=== PATIENT | male | born 1945 | race Two or more races ===

== ENCOUNTER 2023-01-01 08:37 | Inpatient (IN) | payer OTHER, MEDICAID ==
[~2023-01-01] VITALS: Ht 177.8 cm; Wt 92.3 kg
[~2023-01-01 08:37] MED LIST: ASPI325T4 PO; CLON-853 PO; LISI20TA28 PO; LORA0.5T19 PO; NIFE90TA49 PO; POTA10TA51 PO; ZOLP10TA PO
[2023-01-01 09:42] LABS: Basophils # (auto) 0 10 ^3/uL (0-0.2); Basophils % (auto) 0.3 % (0.0-2.0); Eosinophils # (auto) 0.2 10 ^3/uL (0-0.8); Eosinophils % (auto) 2.4 % (0.0-7.0); Hematocrit 43.5 % (41.0-53.0); Hemoglobin 14.7 g/dL (13.5-17.5); Lymphocytes # (auto) 1.3 10 ^3/uL (0.4-5.4); Lymphocytes % (auto) 17.3 % (10.0-50.0); Mean Corpuscular Hemoglobin 31.1 pg (28.0-32.0); Mean Corpuscular Hgb Conc. 33.8 g/dL (32.0-36.0); Mean Corpuscular Volume 92.2 fL (80.0-100.0); Monocytes # (auto) 0.7 10 ^3/uL (0-1.3); Monocytes % (auto) 9.8 % (0.0-12.0); Neutrophils # (auto) 5.3 10 ^3/uL (1.6-8.6); Neutrophils % (auto) 70.2 % (37.0-80.0); Nucleated Red Blood Cells % 0.1 %; Red Blood Cells 4.72 10^6/uL (4.5-5.90); White Blood Cell 7.5 10^3/uL (4.4-10.8)
[2023-01-01 10:15] LABS: Albumin 3.2 g/dL (3.4-5.0); Potassium 4.1 mmol/L (3.5-5.1)
[2023-01-01 10:18] LABS: Urine Bacteria NONE SEEN /hpf (None Seen); Urine Blood Negative /uL (Negative); Urine Mucus FEW (None Seen); Urine Specific Gravity 1.025 (1.001-1.035); Urine WBC 5 /hpf (0 - 3)
[2023-01-01 10:20] LABS: BUN/Creatinine Ratio 19.6 (10.0-20.0); Bilirubin, Total 0.6 mg/dL (0.2-1.0); Total Protein 6.6 g/dL (6.4-8.2)
[2023-01-01 12:02] LABS: INR 1.05 (0.9-1.15); Partial Thromboplastin Time 33.4 sec (24.6-33.4)
[2023-01-01] MEDS ORDERED: MORPHINE SULFATE INJ 2 MG/ml SYRG IV PRN (14:45)
[2023-01-01] MEDS ORDERED: ONDANSETRON HCL 4 MG/2 ML VIAL IV PRN (14:45)
[2023-01-01] MEDS: PANTOPRAZOLE 40 MG/10 ML VIAL INJ IV SCH ×2 (16:27→22:34)
[2023-01-01] MEDS: SODIUM CHLORIDE 0.9% 1,000 ML IV SCH ×2 (17:38→23:05)
[2023-01-01 18:08] LABS: Hematocrit 38.8 % (41.0-53.0); Hemoglobin 13.2 g/dL (13.5-17.5)
[2023-01-01] MEDS ORDERED: clonazePAM 0.5 MG TAB PO SCH (22:00)
[2023-01-01] MEDS: LISINOPRIL 20 MG TAB PO SCH (22:34)
[2023-01-01 23:30] VITALS: BP 148/73
[2023-01-01 23:55] VITALS: BP 148/73
[2023-01-02 00:45] LABS: Hematocrit 38.7 % (41.0-53.0); Hemoglobin 13.1 g/dL (13.5-17.5)
[2023-01-02] MEDS ORDERED: DOXE10CA PO (01:41)
[2023-01-02] MEDS ORDERED: BUDE1AER4 INH (01:41)
[2023-01-02] MEDS ORDERED: LOSA-69 PO (01:41)
[2023-01-02] MEDS ORDERED: VORT1TAB3 PO (01:41)
[2023-01-02] MEDS ORDERED: GABA300C10 PO (01:41)
[2023-01-02] MEDS ORDERED: DOXA4TAB6 PO (01:41)
[2023-01-02 05:00] VITALS: BP 122/53
[2023-01-02 06:25] LABS: Basophils # (auto) 0 10 ^3/uL (0-0.2); Basophils % (auto) 0.4 % (0.0-2.0); Eosinophils # (auto) 0.2 10 ^3/uL (0-0.8); Eosinophils % (auto) 3.5 % (0.0-7.0); Hematocrit 38.4 % (41.0-53.0); Hemoglobin 13.3 g/dL (13.5-17.5); Lymphocytes # (auto) 1.2 10 ^3/uL (0.4-5.4); Lymphocytes % (auto) 17.8 % (10.0-50.0); Mean Corpuscular Hemoglobin 31.6 pg (28.0-32.0); Mean Corpuscular Hgb Conc. 34.5 g/dL (32.0-36.0); Mean Corpuscular Volume 91.5 fL (80.0-100.0); Monocytes # (auto) 0.7 10 ^3/uL (0-1.3); Neutrophils # (auto) 4.8 10 ^3/uL (1.6-8.6); Neutrophils % (auto) 68.3 % (37.0-80.0)
[2023-01-02 06:52] LABS: Albumin 2.9 g/dL (3.4-5.0); Calcium 8.4 mg/dL (8.5-10.1); Potassium 4.1 mmol/L (3.5-5.1)
[2023-01-02 06:57] LABS: Bilirubin, Total 0.7 mg/dL (0.2-1.0); Total Protein 5.8 g/dL (6.4-8.2)
[2023-01-02 09:00] VITALS: BP 130/54
[2023-01-02] MEDS: cefTRIAXone 1GM/50ML D5W 50 ML IV SCH (09:05)
[2023-01-02] MEDS: NIFEdipine ER 30 MG TAB PO SCH (09:14)
[2023-01-02] MEDS: LISINOPRIL 20 MG TAB PO SCH (09:14)
[2023-01-02] MEDS: PANTOPRAZOLE 40 MG/10 ML VIAL INJ IV SCH ×2 (09:15→22:19)
[2023-01-02] MEDS: SODIUM CHLORIDE 0.9% 1,000 ML IV SCH ×2 (09:15→15:45)
[2023-01-02] MEDS ORDERED: PANTOPRAZOLE 40 MG/10 ML VIAL INJ IV SCH (10:00)
[2023-01-02] MEDS ORDERED: ROSU10TA16 PO (10:58)
[2023-01-02 12:13] LABS: Hematocrit 39.1 % (41.0-53.0); Hemoglobin 13.1 g/dL (13.5-17.5)
[2023-01-02 13:00] VITALS: BP 130/54
[2023-01-02] MEDS ORDERED: LIDOCAINE VISCOUS 2% 15ML UD ONE (14:58)
[2023-01-02] MEDS: diphenhdrAMINE HCL 50 MG/1 ML VL ONE ×2 (16:26→16:29)
[2023-01-02] MEDS: MIDAZOLAM HCL 2MG/2ML 2ml VIAL (1mg/ml) ONE ×3 (16:26→16:33)
[2023-01-02] MEDS: fentaNYL CITRATE 100 MCG/2 ML VL ONE ×3 (16:26→16:33)
[2023-01-02 16:29] VITALS: BP 101/54
[2023-01-02] MEDS: SUCRALFATE 1 GM/10 ML ORAL SUSP PO SCH ×2 (18:11→22:18)
[2023-01-02 18:23] LABS: Hematocrit 40.3 % (41.0-53.0); Hemoglobin 13.5 g/dL (13.5-17.5)
[2023-01-02] MEDS ORDERED: GAB100C PO (21:24)
[2023-01-02 22:00] VITALS: BP 106/57
[2023-01-02] MEDS: DOXAZOSIN MESYL 2 MG TAB PO SCH (22:00)
[2023-01-02] MEDS ORDERED: DOXEPIN HCL 10 MG CAP PO PRN (22:00)
[2023-01-02] MEDS: ATORVASTATIN 20 MG TAB PO SCH (22:19)
[2023-01-02] MEDS: GABAPENTIN 300 MG CAP PO SCH ×2 (22:19→22:31)
[2023-01-03] MEDS: SODIUM CHLORIDE 0.9% 1,000 ML IV SCH ×3 (00:05→18:46)
[2023-01-03 02:30] VITALS: BP 103/61
[2023-01-03 05:00] VITALS: BP 102/51
[2023-01-03] MEDS: GABAPENTIN 300 MG CAP PO SCH ×3 (06:00→21:34)
[2023-01-03] MEDS: SUCRALFATE 1 GM/10 ML ORAL SUSP PO SCH ×4 (06:04→21:38)
[2023-01-03 07:07] LABS: Basophils # (auto) 0 10 ^3/uL (0-0.2); Basophils % (auto) 0.4 % (0.0-2.0); Eosinophils # (auto) 0.2 10 ^3/uL (0-0.8); Eosinophils % (auto) 2.7 % (0.0-7.0); Hematocrit 37.6 % (41.0-53.0); Hemoglobin 13.3 g/dL (13.5-17.5); Lymphocytes # (auto) 1.3 10 ^3/uL (0.4-5.4); Lymphocytes % (auto) 17.5 % (10.0-50.0); Mean Corpuscular Hemoglobin 31.5 pg (28.0-32.0); Mean Corpuscular Hgb Conc. 35.3 g/dL (32.0-36.0); Mean Corpuscular Volume 89.2 fL (80.0-100.0); Monocytes # (auto) 0.7 10 ^3/uL (0-1.3); Monocytes % (auto) 8.6 % (0.0-12.0); Neutrophils # (auto) 5.4 10 ^3/uL (1.6-8.6); Neutrophils % (auto) 70.8 % (37.0-80.0); Nucleated Red Blood Cells % 0.1 %; Red Blood Cells 4.22 10^6/uL (4.5-5.90); White Blood Cell 7.6 10^3/uL (4.4-10.8)
[2023-01-03 07:32] LABS: BUN/Creatinine Ratio 16.2 (10.0-20.0); Calcium 8.5 mg/dL (8.5-10.1)
[2023-01-03 08:55] VITALS: BP 96/46
[2023-01-03] MEDS: cefTRIAXone 1GM/50ML D5W 50 ML IV SCH (09:40)
[2023-01-03] MEDS: PANTOPRAZOLE 40 MG/10 ML VIAL INJ IV SCH ×2 (09:40→21:39)
[2023-01-03] MEDS: LOSARTAN POTASSIUM 50 MG TAB PO SCH (09:43)
[2023-01-03] MEDS: NIFEdipine ER 30 MG TAB PO SCH (09:43)
[2023-01-03 13:03] VITALS: BP 98/47
[2023-01-03 20:00] VITALS: BP 117/62
[2023-01-03] MEDS: ATORVASTATIN 20 MG TAB PO SCH (21:33)
[2023-01-03] MEDS: DOXAZOSIN MESYL 2 MG TAB PO SCH (21:33)
[2023-01-03 22:00] VITALS: BP 117/62
[2023-01-04 04:46] VITALS: BP 120/58
[2023-01-04] MEDS: GABAPENTIN 300 MG CAP PO SCH (06:51)
[2023-01-04] MEDS: SUCRALFATE 1 GM/10 ML ORAL SUSP PO SCH ×2 (06:51→11:42)
[2023-01-04] MEDS: SODIUM CHLORIDE 0.9% 1,000 ML IV SCH ×2 (06:51→09:25)
[2023-01-04 09:00] VITALS: BP 120/56
[2023-01-04] MEDS: PANTOPRAZOLE 40 MG/10 ML VIAL INJ IV SCH (09:28)
[2023-01-04] MEDS: cefTRIAXone 1GM/50ML D5W 50 ML IV SCH (09:28)
[2023-01-04] MEDS: LOSARTAN POTASSIUM 50 MG TAB PO SCH (09:29)
[2023-01-04] MEDS: NIFEdipine ER 30 MG TAB PO SCH (09:29)
[2023-01-04] MEDS ORDERED: PANT40T PO (11:33)
[2023-01-04] MEDS ORDERED: SUCR1TAB PO (11:33)
[2023-01-04 12:07] VITALS: BP 118/69
== END 2023-01-04 13:05 | disposition home or self-care (01) | DRG 368 ==
LOC: ER 08:37 → OVERFLOW 14:38 → WEST WING 21:52
PROVIDERS: ADMIT Nurse Practitioner Family; ATTEND Internal Medicine Pulmonary Disease
PROC: 0DB68ZX Excision of Stomach, Via Natural or Artificial Opening Endoscopic, Diagnostic (ICD-10-PCS; 2023-01-02)
PROC: 0DB48ZX Excision of Esophagogastric Junction, Via Natural or Artificial Opening Endoscopic, Diagnostic (ICD-10-PCS; 2023-01-02)
PROC: 0DB98ZX Excision of Duodenum, Via Natural or Artificial Opening Endoscopic, Diagnostic (ICD-10-PCS; principal; 2023-01-02 16:20)
DX: K21.01 Gastro-esophageal reflux disease with esophagitis, with bleeding (principal); K22.11 Ulcer of esophagus with bleeding; K29.01 Acute gastritis with bleeding; K57.31 Diverticulosis of large intestine without perforation or abscess with bleeding; E44.1 Mild protein-calorie malnutrition; E87.1 Hypo-osmolality and hyponatremia; N13.8 Other obstructive and reflux uropathy; N39.0 Urinary tract infection, site not specified; J98.11 Atelectasis; K92.1 Melena; J45.909 Unspecified asthma, uncomplicated; I10 Essential (primary) hypertension; I48.91 Unspecified atrial fibrillation; K44.9 Diaphragmatic hernia without obstruction or gangrene; I25.10 Atherosclerotic heart disease of native coronary artery without angina pectoris; Z68.29 Body mass index [BMI] 29.0-29.9, adult
CPT/HCPCS: 36415; 43239; 71045; 74176; 80048; 80053; 81001; 83690; 84484; 85014; 85018; 85025; 85610; 85730; 86850; 86900; 86901; 93005; 96360; C9113; G0378; J0696; J2250

== ENCOUNTER 2023-08-31 10:34 | Emergency (ER) | payer OTHER, MEDICAID ==
[~2023-08-31] VITALS: Ht 175.3 cm; Wt 90.0 kg
[~2023-08-31 10:34] MED LIST changes: +ACET-1080 PO; -ASPI325T4 PO; +BUDE1AER4 INH; -CLON-853 PO; +DOXA4TAB83 PO; +DOXE10CA PO; +GAB100C PO; +GABA-1250 PO; +GABA-339 PO; -LISI20TA28 PO; -LORA0.5T19 PO; +LOSA50TA46 PO; -NIFE90TA49 PO; +PANT40T PO; -POTA10TA51 PO; +SUCR1TAB PO; +VORT1TAB3 PO; -ZOLP10TA PO
[2023-08-31 13:32] LABS: Basophils # (auto) 0 10 ^3/uL (0-0.2); Basophils % (auto) 0.2 % (0.0-2.0); Eosinophils # (auto) 0 10 ^3/uL (0-0.8); Hematocrit 40.2 % (41.0-53.0); Hemoglobin 13.5 g/dL (13.5-17.5); Lymphocytes # (auto) 0.4 10 ^3/uL (0.4-5.4); Lymphocytes % (auto) 2.7 % (10.0-50.0); Mean Corpuscular Hemoglobin 31.1 pg (28.0-32.0); Mean Corpuscular Hgb Conc. 33.6 g/dL (32.0-36.0); Mean Corpuscular Volume 92.8 fL (80.0-100.0); Monocytes # (auto) 0.4 10 ^3/uL (0-1.3); Monocytes % (auto) 3.1 % (0.0-12.0); Neutrophils # (auto) 12.2 10 ^3/uL (1.6-8.6); Red Blood Cells 4.34 10^6/uL (4.5-5.90); Red Cell Distribution Width 13.2 % (11.8-14.3)
[2023-08-31 13:47] LABS: Alanine Aminotransferase 15 U/L (7-40); Albumin 4.1 g/dL (3.2-4.8); Alkaline Phosphatase 83 U/L (46-116); Anion Gap 5 (5-15); Aspartate Aminotransferase 12 U/L (13-40); BUN/Creatinine Ratio 15.3 (10.0-20.0); Bilirubin, Total 0.7 mg/dL (0.2-1.0); Blood Urea Nitrogen 18 mg/dL (9-23); Calcium 9.3 mg/dL (8.5-10.1); Carbon Dioxide 26 mmol/L (20-30); Chloride 95 mmol/L (98-107); Glucose 139 mg/dL (74-106); Potassium 4.4 mmol/L (3.5-5.1); Sodium 126 mmol/L (136-145); Total Protein 6.7 g/dL (5.7-8.2)
[2023-08-31] MEDS ORDERED: SODIUM CHLORIDE 0.9% 1,000 ML IV ONE (14:00)
[2023-08-31 15:05] LABS: Urine Bacteria NONE SEEN /hpf (None Seen); Urine Blood 1+ /uL (Negative); Urine Clarity Clear (Clear); Urine Color Brown (Yellow); Urine Protein, UAD 1+ (Negative); Urine Specific Gravity 1.018 (1.001-1.035); Urine WBC 39 /hpf (0 - 3); Urine pH 5.5 (5.0-8.0)
[2023-08-31] MEDS ORDERED: cefTRIAXone 1GM/50ML D5W 50 ML IV ONE (23:00)
[2023-08-31 23:34] VITALS: BP 149/70; TEMP 97
[2023-08-31 23:38] VITALS: PULSE 85; RESP 16; O2SAT 97
[2023-08-31] MEDS ORDERED: CEPH250C PO (23:53)
== END 2023-09-01 00:03 | disposition home or self-care (01) ==
LOC: ER 10:34
DX: R30.9 Painful micturition, unspecified (principal); R35.0 Frequency of micturition; I10 Essential (primary) hypertension
CPT/HCPCS: 36415; 80053; 81001; 85025; 87086; 96361; 96365; 99284; J0696; J7030

== ENCOUNTER 2023-10-02 08:59 | Emergency (ER) | payer OTHER, MEDICAID ==
[~2023-10-02] VITALS: Ht 175.3 cm; Wt 86.8 kg
[~2023-10-02 08:59] MED LIST changes: +CEPH250C PO
[2023-10-02 09:58] LABS: Basophils # (auto) 0.1 10 ^3/uL (0-0.2); Basophils % (auto) 0.4 % (0.0-2.0); Eosinophils # (auto) 0 10 ^3/uL (0-0.8); Eosinophils % (auto) 0.1 % (0.0-7.0); Hematocrit 39.4 % (41.0-53.0); Hemoglobin 13.1 g/dL (13.5-17.5); Lymphocytes # (auto) 1.1 10 ^3/uL (0.4-5.4); Lymphocytes % (auto) 5.9 % (10.0-50.0); Mean Corpuscular Hemoglobin 30.4 pg (28.0-32.0); Mean Corpuscular Hgb Conc. 33.3 g/dL (32.0-36.0); Mean Corpuscular Volume 91.4 fL (80.0-100.0); Monocytes # (auto) 1.3 10 ^3/uL (0-1.3); Monocytes % (auto) 6.6 % (0.0-12.0); Neutrophils # (auto) 16.8 10 ^3/uL (1.6-8.6); Red Blood Cells 4.31 10^6/uL (4.5-5.90); Red Cell Distribution Width 13.6 % (11.8-14.3); White Blood Cell 19.3 10^3/uL (4.4-10.8)
[2023-10-02 10:05] LABS: Urine Bacteria NONE SEEN /hpf (None Seen); Urine Blood 2+ /uL (Negative); Urine Budding Yeast MODERATE /hpf (None Seen); Urine Clarity CLOUDY (Clear); Urine Color Brown (Yellow); Urine Hyaline Cast MANY /lpf (0 - 2); Urine Mucus FEW (None Seen); Urine Protein, UAD 2+ (Negative); Urine WBC 3891 /hpf (0 - 3); Urine WBC Clumps PRESENT /hpf (None Seen)
[2023-10-02 10:44] LABS: Chloride 97 mmol/L (98-107); Potassium 4.3 mmol/L (3.5-5.1); Sodium 129 mmol/L (136-145)
[2023-10-02 10:45] LABS: Anion Gap 7 (5-15); Calcium 9.4 mg/dL (8.7-10.4); Carbon Dioxide 25 mmol/L (20-30)
[2023-10-02 10:50] LABS: BUN/Creatinine Ratio 12.1 (10.0-20.0); Blood Urea Nitrogen 12 mg/dL (9-23); Glucose 103 mg/dL (74-106)
[2023-10-02 12:20] VITALS: TEMP 98.1
[2023-10-02] MEDS ORDERED: cefTRIAXone 1GM/50ML D5W 50 ML IV ONE (12:30)
[2023-10-02] MEDS ORDERED: SODIUM CHLORIDE 0.9% 1,000 ML IV ONE (12:30)
[2023-10-02] MEDS ORDERED: PHEN-922 PO (13:55)
[2023-10-02] MEDS ORDERED: LEVO500T91 PO (13:55)
[2023-10-02 13:57] VITALS: BP 111/58; PULSE 70; RESP 18; O2SAT 97
== END 2023-10-02 14:02 | disposition home or self-care (01) ==
LOC: ER 08:59
DX: N39.0 Urinary tract infection, site not specified (principal); J45.909 Unspecified asthma, uncomplicated; I10 Essential (primary) hypertension; Z79.899 Other long term (current) drug therapy
CPT/HCPCS: 36415; 80048; 81001; 85025; 87086; 87088; 87186; 93005; 96365; 99284; J0696; J7030

== ENCOUNTER 2023-11-30 09:02 | Inpatient (IN) | payer OTHER, MEDICAID ==
[~2023-11-30] VITALS: Ht 175.3 cm; Wt 86.4 kg
[~2023-11-30 09:02] MED LIST changes: +LEVO500T91 PO; +PHEN-922 PO
[2023-11-30 09:21] LABS: Basophils # (auto) 0 10 ^3/uL (0-0.2); Basophils % (auto) 0.4 % (0.0-2.0); Eosinophils # (auto) 0.1 10 ^3/uL (0-0.8); Hemoglobin 14.5 g/dL (13.5-17.5); Lymphocytes # (auto) 1.9 10 ^3/uL (0.4-5.4); Lymphocytes % (auto) 22.7 % (10.0-50.0); Mean Corpuscular Hemoglobin 31.2 pg (28.0-32.0); Mean Corpuscular Hgb Conc. 33.8 g/dL (32.0-36.0); Mean Corpuscular Volume 92.4 fL (80.0-100.0); Monocytes # (auto) 0.8 10 ^3/uL (0-1.3); Neutrophils # (auto) 5.7 10 ^3/uL (1.6-8.6); Neutrophils % (auto) 66.9 % (37.0-80.0); Red Blood Cells 4.66 10^6/uL (4.5-5.90); White Blood Cell 8.6 10^3/uL (4.4-10.8)
[2023-11-30 09:30] VITALS: RESP 17; O2SAT 96
[2023-11-30 09:36] LABS: INR 1.03 (0.9-1.15); Partial Thromboplastin Time 31.9 SEC (24.5-34.5); Prothrombin Time 10.8 sec (9.3-11.8)
[2023-11-30 09:37] LABS: Alanine Aminotransferase 12 U/L (7-40); Albumin 4.2 g/dL (3.2-4.8); Alkaline Phosphatase 101 U/L (46-116); Anion Gap 5 (5-15); Aspartate Aminotransferase 14 U/L (13-40); BUN/Creatinine Ratio 11.2 (10.0-20.0); Blood Urea Nitrogen 11 mg/dL (9-23); Carbon Dioxide 30 mmol/L (20-30); Chloride 99 mmol/L (98-107); Glucose 95 mg/dL (74-106); Potassium 4.1 mmol/L (3.5-5.1); Sodium 134 mmol/L (136-145)
[2023-11-30 09:38] LABS: Bilirubin, Total 0.8 mg/dL (0.2-1.0); Total Protein 6.7 g/dL (5.7-8.2)
[2023-11-30 10:11] LABS: Magnesium 1.8 mg/dL (1.6-2.6)
[2023-11-30] MEDS ORDERED: ACETAMINOPHEN 325 MG TAB PO PRN (13:30)
[2023-11-30] MEDS ORDERED: NITROGLYCERIN 0.4 MG SL TAB SL PRN ×2 (13:30→13:45)
[2023-11-30] MEDS ORDERED: MORPHINE SULFATE INJ 2 MG/ml SYRG IV PRN ×2 (13:30→13:45)
[2023-11-30] MEDS: SODIUM CHLORIDE 0.9% 1,000 ML IV SCH (14:31)
[2023-11-30 14:36] LABS: Triglycerides 143 mg/dL (< 150)
[2023-11-30 14:37] LABS: LDL Cholesterol 103 mg/dL (< 100)
[2023-11-30 14:38] LABS: Cholesterol 151 mg/dL (< 200); HDL Cholesterol 36 mg/dL (40-59)
[2023-11-30] MEDS: ASPirin 325 MG TAB PO ONE (16:13)
[2023-11-30 21:11] VITALS: PULSE 62; RESP 13; O2SAT 95
[2023-12-01 06:19] LABS: Basophils # (auto) 0 10 ^3/uL (0-0.2); Basophils % (auto) 0.3 % (0.0-2.0); Eosinophils # (auto) 0.2 10 ^3/uL (0-0.8); Eosinophils % (auto) 2.4 % (0.0-7.0); Hematocrit 38.5 % (41.0-53.0); Lymphocytes # (auto) 1.5 10 ^3/uL (0.4-5.4); Lymphocytes % (auto) 21.7 % (10.0-50.0); Mean Corpuscular Hgb Conc. 33.8 g/dL (32.0-36.0); Mean Corpuscular Volume 91.9 fL (80.0-100.0); Monocytes # (auto) 0.7 10 ^3/uL (0-1.3); Monocytes % (auto) 9.4 % (0.0-12.0); Neutrophils # (auto) 4.7 10 ^3/uL (1.6-8.6); Neutrophils % (auto) 66.2 % (37.0-80.0); Nucleated Red Blood Cells % 0.1 %; Red Blood Cells 4.19 10^6/uL (4.5-5.90); Red Cell Distribution Width 14.1 % (11.8-14.3); White Blood Cell 7.1 10^3/uL (4.4-10.8)
[2023-12-01 06:34] LABS: Alanine Aminotransferase 10 U/L (7-40); Albumin 3.6 g/dL (3.2-4.8); Alkaline Phosphatase 75 U/L (46-116); Anion Gap 5 (5-15); Aspartate Aminotransferase 11 U/L (13-40); BUN/Creatinine Ratio 15.1 (10.0-20.0); Bilirubin, Total 0.8 mg/dL (0.2-1.0); Blood Urea Nitrogen 13 mg/dL (9-23); Calcium 8.9 mg/dL (8.5-10.1); Carbon Dioxide 26 mmol/L (20-30); Chloride 103 mmol/L (98-107); Glucose 90 mg/dL (74-106); Potassium 3.9 mmol/L (3.5-5.1); Sodium 134 mmol/L (136-145); Total Protein 5.7 g/dL (5.7-8.2)
[2023-12-01 08:00] VITALS: PULSE 55; RESP 16; O2SAT 94
[2023-12-01] MEDS ORDERED: ENOXAPARIN SOD 40 MG/0.4 ML SYRINGE SC SCH (10:00)
[2023-12-01] MEDS: ASPirin 81 mg TAB PO SCH (10:45)
[2023-12-01] MEDS: ENOXAPARIN SOD 40 MG/0.4 ML SYRINGE SC SCH (10:45)
[2023-12-01 11:20] LABS: Urine Bacteria NONE SEEN /hpf (None Seen); Urine Blood Negative /uL (Negative); Urine Clarity Clear (Clear); Urine Color Colorless (Yellow); Urine Protein, UAD Negative (Negative); Urine Specific Gravity 1.008 (1.001-1.035); Urine Urobilinogen Normal (Negative); Urine WBC <1 /hpf (0 - 3); Urine pH 7.5 (5.0-8.0)
[2023-12-01] MEDS: PANTOPRAZOLE 40 MG TAB PO ONE (14:57)
[2023-12-01] MEDS ORDERED: IPRATROPIUM BROM 0.5 MG/2.5ML INH SOL NEB PRN (15:15)
[2023-12-01] MEDS ORDERED: ALBUTEROL SULF 2.5 MG/0.5ML(0.5%) NEB SOLN NEB PRN (15:15)
[2023-12-01 16:25] VITALS: BP 149/62; PULSE 57; RESP 18; TEMP 98.1; O2SAT 98
[2023-12-01] MEDS: SUCRALFATE 1 GM TAB PO SCH (17:25)
[2023-12-01 18:49] VITALS: BP 149/62; PULSE 57; RESP 18; TEMP 98.1; O2SAT 98
[2023-12-01 20:00] VITALS: BP 110/66; PULSE 54; PULSE 67; RESP 16; TEMP 97.4; O2SAT 96
[2023-12-01 22:00] VITALS: BP 110/66; PULSE 67; RESP 16; TEMP 97.4; O2SAT 96
[2023-12-01] MEDS: PANTOPRAZOLE 40 MG TAB PO SCH (22:28)
[2023-12-01] MEDS: GABAPENTIN 100 MG CAP PO SCH (22:28)
[2023-12-02 05:00] VITALS: BP 120/64; PULSE 60; RESP 20; TEMP 98; O2SAT 96
[2023-12-02 06:06] LABS: Basophils # (auto) 0 10 ^3/uL (0-0.2); Basophils % (auto) 0.3 % (0.0-2.0); Eosinophils # (auto) 0.2 10 ^3/uL (0-0.8); Eosinophils % (auto) 2.8 % (0.0-7.0); Hematocrit 38.3 % (41.0-53.0); Lymphocytes # (auto) 1.6 10 ^3/uL (0.4-5.4); Lymphocytes % (auto) 22.7 % (10.0-50.0); Mean Corpuscular Hemoglobin 31.6 pg (28.0-32.0); Mean Corpuscular Hgb Conc. 33.9 g/dL (32.0-36.0); Mean Corpuscular Volume 93.1 fL (80.0-100.0); Monocytes # (auto) 0.6 10 ^3/uL (0-1.3); Monocytes % (auto) 8.3 % (0.0-12.0); Neutrophils # (auto) 4.7 10 ^3/uL (1.6-8.6); Neutrophils % (auto) 65.9 % (37.0-80.0); Red Blood Cells 4.11 10^6/uL (4.5-5.90); White Blood Cell 7.2 10^3/uL (4.4-10.8)
[2023-12-02 06:19] LABS: Anion Gap 6 (5-15); Calcium 9.3 mg/dL (8.7-10.4); Carbon Dioxide 25 mmol/L (20-30); Chloride 103 mmol/L (98-107); Sodium 134 mmol/L (136-145)
[2023-12-02 06:24] LABS: Glucose 82 mg/dL (74-106)
[2023-12-02 06:25] LABS: BUN/Creatinine Ratio 13.1 (10.0-20.0); Blood Urea Nitrogen 13 mg/dL (9-23); Magnesium 2.1 mg/dL (1.6-2.6)
[2023-12-02 06:51] VITALS: O2SAT 97
[2023-12-02 08:00] VITALS: BP 124/59; PULSE 51; PULSE 91; RESP 16; TEMP 97.5; O2SAT 97
[2023-12-02 09:00] VITALS: BP 124/59; PULSE 51; RESP 16; TEMP 97.5; O2SAT 97
[2023-12-02] MEDS ORDERED: PANTOPRAZOLE 40 MG TAB PO SCH (10:00)
[2023-12-02] MEDS: LOSARTAN POTASSIUM 50 MG TAB PO SCH (10:36)
[2023-12-02] MEDS: VORTIOXETINE HYDROBROMIDE 20 MG PO SCH (10:37)
[2023-12-02] MEDS ORDERED: ASPI-325 PO (11:52)
[2023-12-02 12:47] VITALS: BP 124/59
[2023-12-02 13:00] VITALS: BP 115/65; PULSE 56; RESP 18; TEMP 98.4; O2SAT 96
== END 2023-12-02 13:45 | disposition home or self-care (01) | DRG 392 ==
LOC: ER 09:02 → TELE 13:20 → TELE-WESTW 12-01 18:45
PROVIDERS: ADMIT Internal Medicine; ATTEND Internal Medicine
DX: K21.9 Gastro-esophageal reflux disease without esophagitis (principal); I48.91 Unspecified atrial fibrillation; I10 Essential (primary) hypertension; J45.909 Unspecified asthma, uncomplicated; Z87.440 Personal history of urinary (tract) infections; Z82.49 Family history of ischemic heart disease and other diseases of the circulatory system
CPT/HCPCS: 36415; 71045; 80048; 80053; 80061; 81001; 83735; 83880; 84443; 84484; 85025; 85610; 85730; 93005; 93306; 99291; G0378

== ENCOUNTER 2024-01-25 08:27 | Emergency (ER) | payer OTHER, MEDICAID ==
[~2024-01-25] VITALS: Ht 175.3 cm; Wt 86.4 kg
[~2024-01-25 08:27] MED LIST changes: +ASPI-325 PO; -CEPH250C PO; +LOSA-534 PO; -LOSA50TA46 PO
[2024-01-25 09:21] VITALS: BP 141/71; PULSE 75; RESP 16; TEMP 97.7; O2SAT 96
== END 2024-01-25 10:44 | disposition home or self-care (01) ==
LOC: ER 08:27
DX: S93.401A Sprain of unspecified ligament of right ankle, initial encounter (principal); J45.909 Unspecified asthma, uncomplicated; K21.9 Gastro-esophageal reflux disease without esophagitis; I10 Essential (primary) hypertension; Z87.440 Personal history of urinary (tract) infections; Z79.899 Other long term (current) drug therapy; X58.XXXA Exposure to other specified factors, initial encounter; Y93.89 Activity, other specified; Y92.89 Other specified places as the place of occurrence of the external cause; Y99.8 Other external cause status
CPT/HCPCS: 73610

== ENCOUNTER 2024-07-21 08:57 | Inpatient (IN) | payer OTHER, MEDICAID ==
[~2024-07-21] VITALS: Ht 175.3 cm; Wt 79.9 kg
[2024-07-21 10:20] LABS: Basophils # (auto) 0 10 ^3/uL (0-0.2); Basophils % (auto) 0.2 % (0.0-2.0); Eosinophils # (auto) 0.1 10 ^3/uL (0-0.8); Eosinophils % (auto) 1.7 % (0.0-7.0); Hematocrit 43.7 % (41.0-53.0); Hemoglobin 14.8 g/dL (13.5-17.5); Lymphocytes # (auto) 1.2 10 ^3/uL (0.4-5.4); Lymphocytes % (auto) 16.3 % (10.0-50.0); Mean Corpuscular Hemoglobin 31.8 pg (28.0-32.0); Mean Corpuscular Hgb Conc. 33.9 g/dL (32.0-36.0); Mean Corpuscular Volume 93.8 fL (80.0-100.0); Monocytes # (auto) 0.6 10 ^3/uL (0-1.3); Monocytes % (auto) 8.1 % (0.0-12.0); Neutrophils # (auto) 5.4 10 ^3/uL (1.6-8.6); Neutrophils % (auto) 73.7 % (37.0-80.0); Platelet Count (auto) 190 10^3/uL (140-450); Red Blood Cells 4.66 10^6/uL (4.5-5.90); Red Cell Distribution Width 13.4 % (11.8-14.3); White Blood Cell 7.4 10^3/uL (4.4-10.8)
[2024-07-21 10:38] LABS: Calcium 9.8 mg/dL (8.7-10.4); Carbon Dioxide 27 mmol/L (20-31)
[2024-07-21 10:43] LABS: Blood Urea Nitrogen 15 mg/dL (9-23); Glucose 106 mg/dL (74-106)
[2024-07-21 11:20] LABS: Anion Gap 4 (5-15); Chloride 101 mmol/L (98-107); Potassium 4.4 mmol/L (3.5-5.1); Sodium 132 mmol/L (136-145)
[2024-07-21 12:20] LABS: Urine Bacteria None Seen /hpf (None Seen)
[2024-07-21 12:45] VITALS: O2SAT 96
[2024-07-21 12:54] LABS: Urine Blood Negative /uL (Negative); Urine Clarity Clear (Clear); Urine Color Yellow (Yellow); Urine Mucus FEW (None Seen); Urine Protein, UAD TRACE (Negative); Urine Specific Gravity 1.023 (1.001-1.035); Urine Urobilinogen Normal (Negative); Urine WBC 5 /hpf (0 - 3)
[2024-07-21] MEDS ORDERED: HYDROmorphone HCL 2 MG/ML VL/or syr IV PRN (14:45)
[2024-07-21] MEDS ORDERED: ONDANSETRON HCL 4 MG/2 ML VIAL IV PRN (14:45)
[2024-07-21] MEDS ORDERED: ACETAMINOPHEN 325 MG TAB PO PRN (14:45)
[2024-07-21] MEDS ORDERED: HYDROcodone-ACET 5/325MG TAB PO PRN (14:45)
[2024-07-21] MEDS: ASPirin 325 MG TAB PO ONE (14:51)
[2024-07-21] MEDS: APIXABAN 5 MG TAB PO SCH (15:08)
[2024-07-21 17:17] VITALS: BP 135/57; PULSE 56; RESP 19; TEMP 97.9; O2SAT 99
[2024-07-21 17:20] VITALS: BP 135/57; PULSE 45; RESP 19; TEMP 97.7; O2SAT 99
[2024-07-21 20:00] VITALS: PULSE 57; PULSE 60; RESP 16; O2SAT 93
[2024-07-21 20:32] VITALS: BP 115/60; PULSE 60; RESP 16; TEMP 97.8; O2SAT 93
[2024-07-21] MEDS: SODIUM CHLOR 0.9% PF (SALINE LOCK) 10ML VIAL/SYR IV SCH (21:37)
[2024-07-22] VITALS (9 sets, daily range): BP systolic 115–141; BP diastolic 55–73; PULSE 46–77; RESP 16–18; TEMP 97.7–98.3; O2SAT 0–97
[2024-07-22 06:11] LABS: Basophils # (auto) 0 10 ^3/uL (0-0.2); Basophils % (auto) 0.3 % (0.0-2.0); Eosinophils # (auto) 0.2 10 ^3/uL (0-0.8); Eosinophils % (auto) 3.2 % (0.0-7.0); Hematocrit 41.2 % (41.0-53.0); Lymphocytes # (auto) 1.6 10 ^3/uL (0.4-5.4); Lymphocytes % (auto) 23.4 % (10.0-50.0); Mean Corpuscular Hemoglobin 31.8 pg (28.0-32.0); Mean Corpuscular Hgb Conc. 33.9 g/dL (32.0-36.0); Mean Corpuscular Volume 93.7 fL (80.0-100.0); Monocytes # (auto) 0.6 10 ^3/uL (0-1.3); Monocytes % (auto) 9.2 % (0.0-12.0); Neutrophils # (auto) 4.4 10 ^3/uL (1.6-8.6); Neutrophils % (auto) 63.9 % (37.0-80.0); Nucleated Red Blood Cells % 0.1 %; Platelet Count (auto) 167 10^3/uL (140-450); Red Blood Cells 4.39 10^6/uL (4.5-5.90); Red Cell Distribution Width 13.4 % (11.8-14.3); White Blood Cell 6.9 10^3/uL (4.4-10.8)
[2024-07-22 06:35] LABS: Alanine Aminotransferase 10 U/L (7-40); Albumin 3.8 g/dL (3.2-4.8); Alkaline Phosphatase 69 U/L (46-116); Anion Gap 5 (5-15); Aspartate Aminotransferase 8 U/L (13-40); BUN/Creatinine Ratio 17.9 (10.0-20.0); Bilirubin, Total 0.6 mg/dL (0.2-1.0); Blood Urea Nitrogen 19 mg/dL (9-23); Calcium 9.2 mg/dL (8.7-10.4); Carbon Dioxide 26 mmol/L (20-31); Chloride 102 mmol/L (98-107); Glucose 96 mg/dL (74-106); Potassium 4.7 mmol/L (3.5-5.1); Sodium 133 mmol/L (136-145); Total Protein 5.7 g/dL (5.7-8.2)
[2024-07-22 09:07] LABS: Magnesium 2.2 mg/dL (1.6-2.6)
[2024-07-22 09:09] LABS: Phosphorus 3.4 mg/dL (2.4-5.1)
[2024-07-22] MEDS ORDERED: GABAPENTIN 100 MG CAP PO SCH (11:05)
[2024-07-22 13:37] LABS: Amphetamine Screen, Urine Neg (NEGATIVE); Barbiturate Scree,Urine Neg (NEGATIVE); Benzodiazephine Screen, Urine Neg (NEGATIVE); Cocaine Screen, Urine Neg (NEGATIVE)
[2024-07-22 13:38] LABS: Cannabinoid Screen, Urine Neg (NEGATIVE); Opiate Scree,Urine Neg (NEGATIVE); Phencyclidine Screen, Urine Neg (NEGATIVE)
[2024-07-22] MEDS: METOPROLOL SUCCINATE XL 50 MG TAB PO ONE (16:45)
[2024-07-22] MEDS: DOCUSATE SOD 100 MG CAP PO PRN (16:52)
[2024-07-22] MEDS ORDERED: IPRATROPIUM BROM 0.5 MG/2.5ML INH SOL NEB PRN (19:15)
[2024-07-22] MEDS: ERGOCALCIFEROL 50,000 UNIT(1.25MG) CAP PO SCH (21:25)
[2024-07-22] MEDS: ENOXAPARIN SOD 80 MG/0.8ML SYRINGE SC SCH (21:25)
[2024-07-22] MEDS: GABAPENTIN 100 MG CAP PO SCH (21:25)
[2024-07-22] MEDS: CYANOCOBALAMIN (B-12) 1000 MCG/1 ML VIAL IM ONE (21:30)
[2024-07-23] VITALS (9 sets, daily range): BP systolic 120–144; BP diastolic 52–71; PULSE 46–66; RESP 16–17; TEMP 97.7–98.3; O2SAT 93–97
[2024-07-23 06:36] LABS: Basophils # (auto) 0 10 ^3/uL (0-0.2); Basophils % (auto) 0.3 % (0.0-2.0); Eosinophils # (auto) 0.2 10 ^3/uL (0-0.8); Eosinophils % (auto) 2.3 % (0.0-7.0); Hematocrit 38.2 % (41.0-53.0); Hemoglobin 13.7 g/dL (13.5-17.5); Lymphocytes # (auto) 1.8 10 ^3/uL (0.4-5.4); Lymphocytes % (auto) 23.3 % (10.0-50.0); Mean Corpuscular Hemoglobin 33.5 pg (28.0-32.0); Mean Corpuscular Volume 93.2 fL (80.0-100.0); Monocytes # (auto) 0.7 10 ^3/uL (0-1.3); Monocytes % (auto) 9.3 % (0.0-12.0); Neutrophils # (auto) 5.1 10 ^3/uL (1.6-8.6); Neutrophils % (auto) 64.8 % (37.0-80.0); Nucleated Red Blood Cells % 0.1 %; Platelet Count (auto) 158 10^3/uL (140-450); Red Cell Distribution Width 13.1 % (11.8-14.3); White Blood Cell 7.9 10^3/uL (4.4-10.8)
[2024-07-23 06:59] LABS: Alanine Aminotransferase 10 U/L (7-40); Albumin 3.5 g/dL (3.2-4.8); Alkaline Phosphatase 65 U/L (46-116); Anion Gap 5 (5-15); Aspartate Aminotransferase < 8 U/L (13-40); BUN/Creatinine Ratio 15.1 (10.0-20.0); Bilirubin, Total 0.6 mg/dL (0.2-1.0); Blood Urea Nitrogen 16 mg/dL (9-23); Calcium 9.2 mg/dL (8.7-10.4); Carbon Dioxide 26 mmol/L (20-31); Chloride 101 mmol/L (98-107); Glucose 94 mg/dL (74-106); Potassium 4.5 mmol/L (3.5-5.1); Sodium 132 mmol/L (136-145); Total Protein 5.8 g/dL (5.7-8.2)
[2024-07-23] MEDS ORDERED: ASPirin-EC 81 mg tab PO SCH (10:00)
[2024-07-23] MEDS: METOPROLOL SUCCINATE XL 50 MG TAB PO SCH (10:27)
[2024-07-23] MEDS: LOSARTAN POTASSIUM 50 MG TAB PO SCH (10:27)
[2024-07-23] MEDS ORDERED: METO-6 PO (15:48)
[2024-07-24] VITALS (8 sets, daily range): BP systolic 116–145; BP diastolic 57–77; PULSE 50–62; RESP 17–18; TEMP 98.1–98.6; O2SAT 94–96
[2024-07-24 07:17] LABS: Basophils # (auto) 0 10 ^3/uL (0-0.2); Basophils % (auto) 0.3 % (0.0-2.0); Eosinophils # (auto) 0.1 10 ^3/uL (0-0.8); Eosinophils % (auto) 2.3 % (0.0-7.0); Hematocrit 39.7 % (41.0-53.0); Hemoglobin 14.1 g/dL (13.5-17.5); Lymphocytes # (auto) 1.5 10 ^3/uL (0.4-5.4); Lymphocytes % (auto) 22.5 % (10.0-50.0); Mean Corpuscular Hemoglobin 32.9 pg (28.0-32.0); Mean Corpuscular Hgb Conc. 35.5 g/dL (32.0-36.0); Mean Corpuscular Volume 92.9 fL (80.0-100.0); Monocytes # (auto) 0.6 10 ^3/uL (0-1.3); Monocytes % (auto) 8.7 % (0.0-12.0); Neutrophils # (auto) 4.3 10 ^3/uL (1.6-8.6); Neutrophils % (auto) 66.2 % (37.0-80.0); Nucleated Red Blood Cells % 0.1 %; Platelet Count (auto) 152 10^3/uL (140-450); Red Blood Cells 4.28 10^6/uL (4.5-5.90); Red Cell Distribution Width 13.4 % (11.8-14.3); White Blood Cell 6.5 10^3/uL (4.4-10.8)
[2024-07-24 07:35] LABS: Albumin 3.7 g/dL (3.2-4.8); Alkaline Phosphatase 64 U/L (46-116); Anion Gap 5 (5-15); Aspartate Aminotransferase < 8 U/L (13-40); BUN/Creatinine Ratio 14.9 (10.0-20.0); Blood Urea Nitrogen 14 mg/dL (9-23); Calcium 9.2 mg/dL (8.7-10.4); Carbon Dioxide 25 mmol/L (20-31); Chloride 101 mmol/L (98-107); Glucose 89 mg/dL (74-106); Potassium 4.1 mmol/L (3.5-5.1); Sodium 131 mmol/L (136-145)
[2024-07-24 07:36] LABS: Bilirubin, Total 0.7 mg/dL (0.2-1.0); Total Protein 5.7 g/dL (5.7-8.2)
[2024-07-24 07:40] LABS: Alanine Aminotransferase < 9 U/L (7-40)
[2024-07-24] MEDS ORDERED: LEVALBUTEROL HCL 1.25 MG/3 ML NEB NEB PRN (14:15)
[2024-07-24] MEDS: FLECAINIDE ACETATE 50 MG TAB PO SCH (22:00)
[2024-07-25] VITALS (7 sets, daily range): BP systolic 124–140; BP diastolic 60–63; PULSE 16–60; RESP 18–20; TEMP 97.7–98.4; O2SAT 94–98
[2024-07-25 07:21] LABS: Basophils # (auto) 0 10 ^3/uL (0-0.2); Basophils % (auto) 0.2 % (0.0-2.0); Eosinophils # (auto) 0.1 10 ^3/uL (0-0.8); Eosinophils % (auto) 1.3 % (0.0-7.0); Hematocrit 41.9 % (41.0-53.0); Hemoglobin 14.5 g/dL (13.5-17.5); Lymphocytes # (auto) 1.9 10 ^3/uL (0.4-5.4); Lymphocytes % (auto) 24.4 % (10.0-50.0); Mean Corpuscular Hemoglobin 32.4 pg (28.0-32.0); Mean Corpuscular Hgb Conc. 34.6 g/dL (32.0-36.0); Mean Corpuscular Volume 93.7 fL (80.0-100.0); Monocytes # (auto) 0.6 10 ^3/uL (0-1.3); Monocytes % (auto) 7.3 % (0.0-12.0); Neutrophils # (auto) 5.2 10 ^3/uL (1.6-8.6); Neutrophils % (auto) 66.8 % (37.0-80.0); Nucleated Red Blood Cells % 0.1 %; Platelet Count (auto) 176 10^3/uL (140-450); Red Blood Cells 4.48 10^6/uL (4.5-5.90); Red Cell Distribution Width 13.6 % (11.8-14.3); White Blood Cell 7.8 10^3/uL (4.4-10.8)
[2024-07-25 07:31] LABS: Chloride 99 mmol/L (98-107); Potassium 4.6 mmol/L (3.5-5.1); Sodium 130 mmol/L (136-145)
[2024-07-25 07:32] LABS: Anion Gap 5 (5-15); Calcium 9.5 mg/dL (8.7-10.4); Carbon Dioxide 26 mmol/L (20-31)
[2024-07-25 07:37] LABS: BUN/Creatinine Ratio 14.9 (10.0-20.0); Blood Urea Nitrogen 14 mg/dL (9-23); Glucose 96 mg/dL (74-106)
[2024-07-25] MEDS: SODIUM CHLORIDE 0.9% 500 ML IV SCH (07:58)
[2024-07-25] MEDS ORDERED: METO-6 PO (11:39)
[2024-07-25] MEDS ORDERED: FLE50T PO (11:39)
== END 2024-07-25 14:12 | disposition home or self-care (01) | DRG 309 ==
LOC: ER 08:57 → TELE 14:40 → TELE-EAST 17:10
PROVIDERS: ADMIT Internal Medicine; ATTEND Internal Medicine
DX: I49.3 Ventricular premature depolarization (principal); D68.59 Other primary thrombophilia; E87.1 Hypo-osmolality and hyponatremia; R00.1 Bradycardia, unspecified; I48.0 Paroxysmal atrial fibrillation; I10 Essential (primary) hypertension; K21.9 Gastro-esophageal reflux disease without esophagitis; J45.909 Unspecified asthma, uncomplicated; N40.0 Benign prostatic hyperplasia without lower urinary tract symptoms; M19.09 Primary osteoarthritis, other specified site; I44.7 Left bundle-branch block, unspecified; I25.10 Atherosclerotic heart disease of native coronary artery without angina pectoris; E78.5 Hyperlipidemia, unspecified; E55.9 Vitamin D deficiency, unspecified; Z80.3 Family history of malignant neoplasm of breast; Z82.49 Family history of ischemic heart disease and other diseases of the circulatory system; Z87.891 Personal history of nicotine dependence; Z79.899 Other long term (current) drug therapy; Z79.01 Long term (current) use of anticoagulants; Z80.0 Family history of malignant neoplasm of digestive organs; Z85.3 Personal history of malignant neoplasm of breast
CPT/HCPCS: 36415; 71045; 80048; 80053; 80307; 81001; 82306; 82607; 83735; 84100; 84439; 84443; 84484; 85025; 93005; 93306; 96360; 99291; G0378

== ENCOUNTER 2024-08-26 11:14 | Emergency (ER) | payer OTHER, MEDICAID ==
[~2024-08-26] VITALS: Ht 175.3 cm; Wt 82.2 kg
[~2024-08-26 11:14] MED LIST changes: +FLE50T PO; +METO-6 PO
--- NOTE | 2024-08-26 13:05 | ED.PDOC ---
GI ASSESSMENT HPI Comments 79 y.o male with PMH of HTN, GERD, asthma, UTI's, AFIB, presents to the ED for a chief complaint of left lower abdominal pain associated with nausea that started 3 weeks ago. Patient reports pain is non radiating, constant and presents with new onset dark stool x 3 days. Patient reports recent colonoscopy done by Dr. Cabral which showed Diverticulosis but was given no treatment after. Patient denies any fever, chills, diarrhea, sore throat, runny nose, congestion, chest pain, or SOB. He took peptobismol one week ago but then did not experience dark stools. Chief Complaint: Abdominal Pain Time Seen by MD: 12:24 Primary Care Provider: UNKNOWN Reviewed Notes: Nurses Notes, Medications, Allergies Allergies: Coded Allergies: NO KNOWN ALLERGIES (Unverified , 10/01/15) Home Meds Active Scripts Ondansetron Odt 4MG Tab (ZOFRAN PO) 4 Mg Tb, 4 MG PO Q6HPRN PRN, #14 TAB ODT TAB-DISSOLVE IN MOUTH, THEN SWALLOW Prov:MOISES YEAGER MD 08/26/24 Flecainide Acetate (TAMBOCOR TABLET) 50 Mg Tb, 50 MG PO BID for 30 Days, #60 TAB Prov:JEFFREY KNIGHT RESIDENT 07/25/24 Metoprolol Succinate (Toprol Xl) 50 Mg Tab, 12.5 MG PO DAILY for 30 Days, #8 TAB Prov:JEFFREY KNIGHT RESIDENT 07/25/24 Aspirin (Aspirin Low Dose) 81 Mg Tab, 81 MG PO DAILY for 30 Days, #30 TAB 3 Refills Prov:CHRIST RAZO RESIDENT 12/02/23 Phenazopyridine HCl (Phenazopyridine Hydrochlo) 200 Mg Tab, 200 MG PO TID, #6 TAB Prov:KERRY STOCK 10/02/23 Levofloxacin Hemihydrate (LEVAQUIN 500 MG) 500 Mg Tab, 1 TAB PO DAILY, #10 TAB Prov:KERRY STOCK 10/02/23 Acetaminophen (Tylenol 8 Hour Arthritis) 650 Mg Tab, 650 MG PO TID, #30 TAB Prov:KERRY STOCK 05/21/23 Sucralfate (Sucralfate) 1 Gm Tab, 1 GM PO Q6HR, #120 TAB Prov:CLEMENTINA CADENA MD 01/04/23 Pantoprazole Sodium Sesquihydr (Pantoprazole Sodium) 40 Mg Tab, 40 MG PO BID, #60 TAB Prov:CLEMENTINA CADENA MD 01/04/23 Reported Medications Gabapentin (Gabapentin) 600 Mg Tab, 1200 MG PO, TAB 07/08/23 Vortioxetine Hydrobromide (Trintellix) 20 Mg Tab, 20 MG PO DAILY, TAB 07/08/23 Gabapentin (Gabapentin) 100 Mg Cap, 3 CAP PO TID 01/02/23 Budesonide-Formoterol Fumarate (Budesonide/Formoterol Fum 160-4.5 Mcg/Act) 1 Aer Aer, INH 01/02/23 Doxepin Hcl (Doxepin Hcl) 10 Mg Cap, 1 CAP PO QHSP PRN for insomnia 01/02/23 Doxazosin Mesylate (Doxazosin Mesylate) 4 Mg Tab, 1 TAB PO DAILY 01/02/23 Gabapentin (Gabapentin) 300 Mg Cap, 1 CAP PO TID 01/02/23 Vortioxetine Hydrobromide (Trintellix) 20 Mg Tab, 1 TAB PO DAILY for ANXIETY 01/02/23 Losartan Potassium (Losartan Potassium) 50 Mg Tab, 1 TAB PO DAILY 01/02/23 Losartan Potassium (Losartan Potassium) 50 Mg Tab, 50 MG PO DAILY, TAB 02/15/21 Doxazosin Mesylate (Doxazosin Mesylate) 4 Mg Tab, 4 MG PO DAILY, TAB 02/15/21 Information Source: Patient Mode of Arrival: Ambulatory Timing: Weeks (2) Duration: Since onset Vomitus: None Stool: Other (dark) Severity: Moderate Recent: None Recent Hx of: None Pain Location: Diffuse Modifying Factors: Nothing Associated sign and symptoms: Nausea, Abdominal Pain Past Medical History PAST MEDICAL HISTORY: AFIB, Asthma, GERD, HTN, UTI'S Surgical History: Denies all surgeries Family History Family History: Reviewed,noncontributory to illness Social History Smoker: Non-Smoker Alcohol: Denies ETOH Use Drugs: Denies Drug Use Lives In: Home Constitutional: denies: chills, diaphoresis, fatigue, fever, malaise, sweats, weakness, others EENTM: denies: blurred vision, double vision, ear bleeding, ear discharge, ear drainage, ear pain, ear ringing, eye pain, eye redness, hearing loss, mouth pain, mouth swelling, nasal discharge, nose bleeding, nose congestion, nose pain, photophobia, tearing, throat pain, throat swelling, voice changes, others Respiratory: denies: cough, hemoptysis, orthopnea, SOB at rest, shortness of breath, SOB with excertion, stridor, wheezing, others Cardiovascular: denies: chest pain, dizzy spells, diaphoresis, Dyspnea on exertion, edema, irregular heart beat, left arm pain, lightheadedness, palpitations, PND, syncope, others Gastrointestinal: reports: abdominal pain, nausea; denies: abdomen distended, blood streaked bowels, constipated, diarrhea, dysphagia, difficulty swallowing, hematemesis, melena, poor appetite, poor fluid intake, rectal bleeding, rectal pain, vomiting, others Genitourinary: denies: burning, dysuria, flank pain, frequency, hematuria, incontinence, penile discharge, penile sore, pain, testicle pain, testicle swelling, urgency, others Neurological: denies: dizziness, fainting, headache, left sided numbness, left sided weakness, numbness, paresthesia, pre-existing deficit, right sided numbness, right sided weakness, seizure, speech problems, tingling, tremors, weakness, others Musculoskeletal: denies: back pain, gout, joint pain, joint swelling, muscle pain, muscle stiffness, neck pain, others Integumetry: denies: bruises, change in color, change in hair/nails, dryness, laceration, lesions, lumps, rash, wounds, others Allergic/Immunocompromised: denies: Difficulty Healing, Frequent Infections, Hives, Itching, others Hematologic/Lymphatic: denies: anemia, blood clots, easy bleeding, easy brui sing, swollen glands, others Endocrine: denies: excessive hunger, excessive sweating, excessive thirst, ex cessive urination, flushing, intolerance to cold, intolerance to heat, unexplained weight gain, unexplained weight loss, others Psychiatric: denies: anxiety, bipolar disorder, depression, hopeless, panic disorder, schizophrenia, sleepless, suicidal, others All Other Systems: Reviewed and Negative Physical Exam General Appearance: No Apparent Distress, Normal HEENT: Normal ENT Inspection Neck: Normal, Normal Inspection Respiratory: Lungs Clear, No Respiratory Distress, Normal Breath Sounds Cardiovascular: Normal Peripheral Pulses, Regular Rate/Rhythm Breast Exam: Deferred Gastrointestinal: Non Tender, Soft Genitalia: Deferred Pelvic: Deferred Rectal: Deferred Extremities: Normal inspection, Normal range of motion Musculoskeletal : Apperance: Normal Neurologic: Alert, train conductor II-XII nml as Tested, No Motor Deficits, Normal Affect, Normal Mood, No Sensory Deficits Cerebellar Function: Normal Reflexes: Normal Skin: Dry, Normal Color, Warm Lymphatic: No Adenopathy Was a procedure done? Was a procedure done?: No GI differential Dx Differential Diagnosis: Diverticular disease, Esophageal rupture, Esophagitis, Gastroenteritis, GI hemorrhage, Inflammatory BD, Impaction, Anemia, Esophageal Varicies X-Ray, Labs, Meds, VS Vital Signs Date Time Temp Pulse Resp B/P (MAP) Pulse Ox O2 Delivery O2 Flow Rate FiO2 08/26/24 16:55 97.5 64 16 145/68 (93) 95 97.5 08/26/24 13:17 66 18 96 Room Air 08/26/24 13:17 66 18 129/53 (78) 96 08/26/24 13:16 68 17 98 Room Air* 0 21 08/26/24 11:31 60 08/26/24 11:29 97.9 64 20 146/77 (100) 96 08/26/24 11:29 97.9 64 20 146/77 (100) 96 97.9 Lab Test 08/26/24 13:49 Range/Units White Blood Count 7.2 4.4-10.8 10^3/uL Red Blood Count 4.33 L 4.5-5.90 10^6/uL Hemoglobin 14.1 13.5-17.5 g/dL Hematocrit 40.9 L 41.0-53.0 % Mean Corpuscular Volume 94.4 80.0-100.0 fL Mean Corpuscular Hemoglobin 32.6 H 28.0-32.0 pg Mean Corpuscular Hemoglobin Concent 34.6 32.0-36.0 g/dL Red Cell Distribution Width 13.2 11.8-14.3 % Platelet Count 198 140-450 10^3/uL Mean Platelet Volume 7.9 6.9-10.8 fL Neutrophils (%) (Auto) 74.6 37.0-80.0 % Lymphocytes (%) (Auto) 15.0 10.0-50.0 % Monocytes (%) (Auto) 8.3 0.0-12.0 % Eosinophils (%) (Auto) 1.7 0.0-7.0 % Basophils (%) (Auto) 0.4 0.0-2.0 % Neutrophils # (Auto) 5.4 1.6-8.6 10 ^3/uL Lymphocytes # (Auto) 1.1 0.4-5.4 10 ^3/uL Monocytes # (Auto) 0.6 0-1.3 10 ^3/uL Eosinophils # (Auto) 0.1 0-0.8 10 ^3/uL Basophils # (Auto) 0 0-0.2 10 ^3/uL Nucleated Red Blood Cells 0.0 % Sodium Level 135 L 136-145 mmol/L Potassium Level 4.2 3.5-5.1 mmol/L Chloride Level 100 98-107 mmol/L Carbon Dioxide Level 29 20-31 mmol/L Anion Gap 6 5-15 Blood Urea Nitrogen 15 9-23 mg/dL Creatinine 1.02 0.700-1.30 mg/dL Glomerular Filtration Rate Calc 75 >90 mL/min BUN/Creatinine Ratio 14.7 10.0-20.0 Serum Glucose 109 H 74-106 mg/dL Calcium Level 9.9 8.7-10.4 mg/dL Total Bilirubin 0.7 0.2-1.0 mg/dL Aspartate Amino Transferase (AST) 12 L 13-40 U/L Alanine Aminotransferase (ALT) 9 7-40 U/L Alkaline Phosphatase 75 46-116 U/L Total Protein 6.6 5.7-8.2 g/dL Albumin 4.1 3.2-4.8 g/dL Current Medications Medications (Trade) Dose Ordered Sig/Kemar Route Start Time Stop Time Status Last Admin Ondansetron HCl (Zofran Po) 4 mg ONCE ONCE PO 08/26/24 13:15 08/26/24 13:16 DC 08/26/24 13:16 Exam: CT CT AB PEL WITH IV CON ONLY History: ro diverticulitis TECHNIQUE: A digital carcass washer image was obtained. During the uneventful, intravenous administration of contrast material, multislice data acquisition was obtained through the abdomen and pelvis. The data set was subsequently recons tructed into axial images. Images were reviewed on a work station using a combination of axial and multiplanar using a variety of window levels and settings. 100 cc of Omnipaque 300 contrast was injected intravenously. All CT scans at this medical facility are performed using dose modulation techniques as appropriate to a performed exam including the following:Automated exposure control was utilized; adjustment of the MA and/or KV according to patient size; and use of iterative reconstruction technique. Radiation Dose Information: CT Dose: CTDI volume is 13.65 mGy. Dose-length product is 733.91 mGy*cm Comparison: CT CT AB PEL WO CON-NO ORAL OR IV on DOS: 01/01/23 FINDINGS: The right adrenal gland is not seen and is probably surgically absent. There a re surgical clips in the right adrenal gland fossa. The left adrenal gland appears within normal limits. There is mild fatty infiltration of the liver. The gallbladder is mildly contracted without evidence of gallstones. There is a 2.5 cm exophytic right renal cyst . There is no evidence of nephrolithiasis or hydronephrosis. The pancreas, and spleen appear within normal limits. There is no evidence of abdominal lymphadenopathy. There is no free fluid or free air. The stomach grossly appears unremarkable. The small and large bowel loops demonstrate normal caliber. There are multiple diverticula in the distal colon without evidence of acute diverticulitis. The abdominal aorta and IVC appear within normal limits. The prostate gland appears prominent in size. Bladder demonstrates mild circumferential wall thickening which May relate to chronic outlet obstruction. There is no evidence of a pelvic mass or lymphadenopathy. There is no free fluid collection. Lung bases are clear. There is no acute osseous abnormality. IMPRESSION: 1. There is no acute process in the abdomen and pelvis.. 2. Distal colon diverticulosis. 3. Prostatomegaly. Bladder demonstrates mild circumferential wall thickening which May relate to chronic outlet obstruction. 4. The right adrenal gland is not seen and is probably surgically absent. Clinical correlation is recommended. 5. Mild fatty infiltration of the liver. HS:Y Time of 1ST Reevaluation: 14:00 Reevaluation 1ST: Unchanged Patient Education/Counseling: Diagnosis, Treatment, Prognosis Family Education/Counseling: No Family Present Departure 1 Departure Time of Disposition: 16:25 Impression: Primary Impression: Abdominal pain Qualified Codes: R10.32 - Left lower quadrant pain Additional Impressions: Diverticulosis Nausea Bladder wall thickening Disposition: 01 HOME / SELF CARE / HOMELESS Condition: Good Additional Instructions: Follow up with the primary care physician in 2-3 days. Return to the ER if symptoms worsen or persist. Exam: CT CT AB PEL WITH IV CON ONLY History: ro diverticulitis TECHNIQUE: A digital carcass washer image was obtained. During the uneventful, intravenous administration of contrast material, multislice data acquisition was obtained through the abdomen and pelvis. The data set was subsequently reconstructed into axial images. Images were reviewed on a work station using a combination of axial and multiplanar using a variety of window levels and settings. 100 cc of Omnipaque 300 contrast was injected intravenously. All CT scans at this medical facility are performed using dose modulation techniques as appropriate to a performed exam including the following:Automated exposure control was utilized; adjustment of the MA and/or KV according to patient size; and use of iterative reconstruction technique. Radiation Dose Information: CT Dose: CTDI volume is 13.65 mGy. Dose-length product is 733.91 mGy*cm Comparison: CT CT AB PEL WO CON-NO ORAL OR IV on DOS: 01/01/23 FINDINGS: The right adrenal gland is not seen and is probably surgically absent. There are surgical clips in the right adrenal gland fossa. The left adrenal gland appears within normal limits. There is mild fatty infiltration of the liver. The gallbladder is mildly contracted without evidence of gallstones. There is a 2.5 cm exophytic right renal cyst . There is no evidence of nephrolithiasis or hydronephrosis. The pancreas, and spleen appear within normal limits. There is no evidence of abdominal lymphadenopathy. There is no free fluid or free air. The stomach grossly appears unremarkable. The small and large bowel loops demonstrate normal caliber. There are multiple diverticula in the distal colon without evidence of acute diverticulitis. The abdominal aorta and IVC appear within normal limits. The prostate gland appears prominent in size. Bladder demonstrates mild circumferential wall thickening which May relate to chronic outlet obstruction. There is no evidence of a pelvic mass or lymphadenopathy. There is no free fluid collection. Lung bases are clear. There is no acute osseous abnormality. IMPRESSION: 1. There is no acute process in the abdomen and pelvis.. 2. Distal colon diverticulosis. 3. Prostatomegaly. Bladder demonstrates mild circumferential wall thickening which May relate to chronic outlet obstruction. 4. The right adrenal gland is not seen and is probably surgically absent. Clinical correlation is recommended. 5. Mild fatty infiltration of the liver. HS:Y e-Prescriptions Ondansetron Odt 4MG Tab (ZOFRAN PO) 4 Mg Tb 4 MG PO Q6HPRN PRN, #14 TAB ODT TAB-DISSOLVE IN MOUTH, THEN SWALLOW Prov: MOISES YEAGER MD 08/26/24 Discharged With: Self Critical Care Note Critical Care Time?: No Stability Stability form required: No I personally scribed for MOISES YEAGER MD ([email or web address]) on 08/26/24 at 13:05. Electronically submitted by Graciela Cabezas ([facility]). I personally scribed for MOISES YEAGER MD ([email or web address]) on 08/26/24 at 13:59. Electronically submitted by Graciela Cabezas ([facility]). I personally scribed for MOISES YEAGER MD ([email or web address]) on 08/26/24 at 17:07. Electronically submitted by Graciela Cabezas ([facility]). MOISES YEAGER MD Aug 26, 2024 13:05
[2024-08-26 13:16] VITALS: PULSE 68; RESP 17; O2SAT 98
[2024-08-26] MEDS: ONDANSETRON ODT 4 MG TAB PO ONE (13:16)
[2024-08-26 14:06] LABS: Basophils # (auto) 0 10 ^3/uL (0-0.2); Basophils % (auto) 0.4 % (0.0-2.0); Eosinophils # (auto) 0.1 10 ^3/uL (0-0.8); Eosinophils % (auto) 1.7 % (0.0-7.0); Hematocrit 40.9 % (41.0-53.0); Hemoglobin 14.1 g/dL (13.5-17.5); Lymphocytes # (auto) 1.1 10 ^3/uL (0.4-5.4); Mean Corpuscular Hemoglobin 32.6 pg (28.0-32.0); Mean Corpuscular Hgb Conc. 34.6 g/dL (32.0-36.0); Mean Corpuscular Volume 94.4 fL (80.0-100.0); Monocytes # (auto) 0.6 10 ^3/uL (0-1.3); Monocytes % (auto) 8.3 % (0.0-12.0); Neutrophils # (auto) 5.4 10 ^3/uL (1.6-8.6); Neutrophils % (auto) 74.6 % (37.0-80.0); Platelet Count (auto) 198 10^3/uL (140-450); Red Blood Cells 4.33 10^6/uL (4.5-5.90); Red Cell Distribution Width 13.2 % (11.8-14.3); White Blood Cell 7.2 10^3/uL (4.4-10.8)
[2024-08-26 14:32] LABS: Albumin 4.1 g/dL (3.2-4.8); Alkaline Phosphatase 75 U/L (46-116); Anion Gap 6 (5-15); BUN/Creatinine Ratio 14.7 (10.0-20.0); Bilirubin, Total 0.7 mg/dL (0.2-1.0); Blood Urea Nitrogen 15 mg/dL (9-23); Calcium 9.9 mg/dL (8.7-10.4); Carbon Dioxide 29 mmol/L (20-31); Chloride 100 mmol/L (98-107); Potassium 4.2 mmol/L (3.5-5.1); Total Protein 6.6 g/dL (5.7-8.2)
[2024-08-26 14:53] LABS: Alanine Aminotransferase 9 U/L (7-40); Aspartate Aminotransferase 12 U/L (13-40); Glucose 109 mg/dL (74-106); Sodium 135 mmol/L (136-145)
[2024-08-26] MEDS: IOHEXOL 300 MG/ML 100ML BOTTLE IJ ONE (15:09)
--- NOTE | 2024-08-26 15:32 | DVH ---
Exam: CT CT AB PEL WITH IV CON ONLY History: ro diverticulitis TECHNIQUE: A digital cap sizer image was obtained. During the uneventful, intravenous administration of c ontrast material, multislice data acquisition was obtained through the abdomen and pelvis. The data s et was subsequently reconstructed into axial images. Images were reviewed on a work station using a c ombination of axial and multiplanar using a variety of window levels and settings. 100 cc of Omnipaqu e 300 contrast was injected intravenously. All CT scans at this medical facility are performed using dose modulation techniques as appropriate t o a performed exam including the following:Automated exposure control was utilized; adjustment of the MA and/or KV according to patient size; and use of iterative reconstruction technique. Radiation Dose Information: CT Dose: CTDI volume is 13.65 mGy. Dose-length product is 733.91 mGy*cm Comparison: CT CT AB PEL WO CON-NO ORAL OR IV on DOS: 01/01/23 FINDINGS: The right adrenal gland is not seen and is probably surgically absent. There are surgical clips in t he right adrenal gland fossa. The left adrenal gland appears within normal limits. There is mild fatty infiltration of the liver. The gallbladder is mildly contracted without evidence of gallstones. There is a 2.5 cm exophytic right renal cyst . There is no evidence of nephrolithiasi s or hydronephrosis. The pancreas, and spleen appear within normal limits. There is no evidence of abdominal lymphadenopathy. There is no free fluid or free air. The stomach grossly appears unremarkable. The small and large bowel loops demonstrate normal caliber. There are multiple diverticula in the distal colon without evidence of acute diverticulitis. The abdominal aorta and IVC appear within normal limits. The prostate gland appears prominent in size. Bladder demonstrates mild circumferential wall thicken ing which May relate to chronic outlet obstruction. There is no evidence of a pelvic mass or lymphade nopathy. There is no free fluid collection. Lung bases are clear. There is no acute osseous abnormality. IMPRESSION: 1. There is no acute process in the abdomen and pelvis.. 2. Distal colon diverticulosis. 3. Prostatomegaly. Bladder demonstrates mild circumferential wall thickening which May relate to veneer stock grader tamra outlet obstruction. 4. The right adrenal gland is not seen and is probably surgically absent. Clinical correlation is re commended. 5. Mild fatty infiltration of the liver. HS:Y
[2024-08-26] MEDS ORDERED: ZOFR4T PO (16:36)
[2024-08-26 16:55] VITALS: BP 145/68; PULSE 64; RESP 16; TEMP 97.5; O2SAT 95
--- NOTE | 2024-08-30 13:15 | ECG ---
[facility] Test Date: 2024-08-26 Test Time: 11:31:33 Pat Name: ARIANNE BUCK Department: ER Room: Gender: M Superintendent Tests: DR AG: 1945 Requested By: NOEL FENG Order Number: [id number] Reading MD: Measurements Intervals [place] Rate: 60 P: 38 MI: 159 QRS: 36 QRSD: 104 T: 4 QT: 414 QTc: 414 Interpretive Statements Sinus rhythm Low voltage, precordial leads Please click the below link to view image of tracing.
== END 2024-08-26 17:05 | disposition home or self-care (01) ==
LOC: ER 11:14
DX: K57.30 Diverticulosis of large intestine without perforation or abscess without bleeding (principal); R11.0 Nausea; R10.32 Left lower quadrant pain; J45.909 Unspecified asthma, uncomplicated; K21.9 Gastro-esophageal reflux disease without esophagitis; I10 Essential (primary) hypertension; R23.4 Changes in skin texture; Z79.84 Long term (current) use of oral hypoglycemic drugs; Z79.899 Other long term (current) drug therapy
CPT/HCPCS: 36415; 74177; 80053; 85025; 93005; 99285; Q0162; Q9967

== ENCOUNTER → 2025-01-18 | Outpatient (CLI) | payer OTHER, MEDICAID ==
[~2025-01-18] MED LIST changes: +ALBUTEROL SULF 2.5 MG/0.5ML(0.5%) NEB SOLN ONE; +ZOFR4T PO
== END | disposition home or self-care (01) ==
LOC: RT 10:29
PROVIDERS: ATTEND Internal Medicine Pulmonary Disease
DX: J45.50 Severe persistent asthma, uncomplicated (principal); R06.00 Dyspnea, unspecified; R05.9 Cough, unspecified; Z79.51 Long term (current) use of inhaled steroids; Z87.891 Personal history of nicotine dependence
CPT/HCPCS: 94060; 94727; 94729

== ENCOUNTER 2025-08-18 12:09 | Inpatient (IN) | payer MEDICARE, MEDICAID ==
[~2025-08-18] VITALS: Ht 175.3 cm; Wt 83.2 kg
[~2025-08-18 12:09] MED LIST changes: -ALBUTEROL SULF 2.5 MG/0.5ML(0.5%) NEB SOLN ONE
--- NOTE | 2025-08-18 12:17 | ECG ---
[facility] Test Date: 2025-08-18 Test Time: 12:16:13 Pat Name: ARIANNE BUCK Department: ED Room: 0297T Gender: M Scrap Handler: RAFAEL : 1945 Requested By: ANIKA BAHENA Order Number: [id number] Reading MD: Arianne Quach Measurements Intervals [place] Rate: 64 P: 20 IA: 171 QRS: 7 QRSD: 98 T: 56 QT: 394 QTc: 407 Interpretive Statements Sinus rhythm Low voltage, precordial leads Baseline wander in lead(s) V3 Electronically Signed On 08-22-2025 14:58:19 PST by Arianne Quach Please click the below link to view image of tracing.
[2025-08-18 12:37] LABS: Hematocrit 40.6 % (41.0-53.0); Hemoglobin 14.0 g/dL (13.5-17.5); Mean Corpuscular Hemoglobin 31.7 pg (28.0-32.0); Mean Corpuscular Volume 91.6 fL (80.0-100.0); Nucleated Red Blood Cells % 0.1 %
[2025-08-18 12:45] LABS: Chloride 100 mmol/L (98-107); Potassium 4.3 mmol/L (3.5-5.1); Sodium 136 mmol/L (136-145)
[2025-08-18 12:46] LABS: Anion Gap 6 (5-15); Carbon Dioxide 30 mmol/L (20-31)
[2025-08-18 12:47] LABS: Calcium 9.5 mg/dL (8.7-10.4)
[2025-08-18 12:51] LABS: BUN/Creatinine Ratio 18.6 (10.0-20.0); Blood Urea Nitrogen 19 mg/dL (9-23); Glucose 84 mg/dL (74-106)
--- NOTE | 2025-08-18 12:56 | DVH ---
CHEST RADIOGRAPH Indication: CP Technique: Frontal and lateral view of the chest was obtained Comparison: XY CHEST XRAY 1 VIEW on DOS: 07/22/24, XY CHEST PORTABLE on DOS: 11/30/23, XY CHEST PORTABLE on DOS: 01/01/23, CXRP on DOS: 05/31/22, CHEST PORTABLE on DOS: 05/31/22 FINDINGS: Lines and Tubes: None Lungs: Clear Pleura: No effusion. No pneumothorax. Cardiomediastinal contours: Unremarkable Bones: Unremarkable IMPRESSION: No evidence of acute disease.
[2025-08-18] MEDS: NITROGLYCERIN 0.4 MG SL TAB SL ONE (14:00)
--- NOTE | 2025-08-18 14:38 | ED.PDOC ---
HPI Comments 80 y.o male presents to the ED for a chief complaint of substernal chest pain and weakness that started this morning. Patient reports previous episode of chest pain that is intermittent, however states today pain has been constant. He was following a membership sales advisor at [facility] due to AFIB and underwent an ablation 1-2 years ago.Patient describes pain as sharp with no alleviating factors. Patient denies any SOB, fever, chills, nausea, vomiting. Chief Complaint: Chest Pain Time Seen by MD: 13:51 Primary Care Provider: UNKNOWN Reviewed Notes: Nurses Notes, Medications, Allergies Allergies: Coded Allergies: NO KNOWN ALLERGIES (Unverified , 10/01/15) Home Meds Active Scripts Ondansetron Odt 4MG Tab (ZOFRAN PO) 4 Mg Tb, 4 MG PO Q6HPRN PRN, #14 TAB ODT TAB-DISSOLVE IN MOUTH, THEN SWALLOW Prov:MOISES YEAGER MD 08/26/24 Flecainide Acetate (TAMBOCOR TABLET) 50 Mg Tb, 50 MG PO BID for 30 Days, #60 TAB Prov:JEFFREY KNIGHT RESIDENT 07/25/24 Metoprolol Succinate (Toprol Xl) 50 Mg Tab, 12.5 MG PO DAILY for 30 Days, #8 TAB Prov:JEFFREY KNIGHT RESIDENT 07/25/24 Aspirin (Aspirin Low Dose) 81 Mg Tab, 81 MG PO DAILY for 30 Days, #30 TAB 3 Refills Prov:CHRIST RAZO RESIDENT 12/02/23 Phenazopyridine HCl (Phenazopyridine Hydrochlo) 200 Mg Tab, 200 MG PO TID, #6 TAB Prov:KERRY STOCK 10/02/23 Levofloxacin Hemihydrate (LEVAQUIN 500 MG) 500 Mg Tab, 1 TAB PO DAILY, #10 TAB Prov:KERRY STOCK 10/02/23 Acetaminophen (Tylenol 8 Hour Arthritis) 650 Mg Tab, 650 MG PO TID, #30 TAB Prov:KERRY STOCK 05/21/23 Sucralfate (Sucralfate) 1 Gm Tab, 1 GM PO Q6HR, #120 TAB Prov:CLEMENTINA CADENA MD 01/04/23 Pantoprazole Sodium Sesquihydr (Pantoprazole Sodium) 40 Mg Tab, 40 MG PO BID, #60 TAB Prov:CLEMENTINA CADENA MD 01/04/23 Reported Medications Gabapentin (Gabapentin) 600 Mg Tab, 1200 MG PO, TAB 07/08/23 Vortioxetine Hydrobromide (Trintellix) 20 Mg Tab, 20 MG PO DAILY, TAB 07/08/23 Gabapentin (Gabapentin) 100 Mg Cap, 3 CAP PO TID 01/02/23 Budesonide-Formoterol Fumarate (Budesonide/Formoterol Fum 160-4.5 Mcg/Act) 1 Aer Aer, INH 01/02/23 Doxepin Hcl (Doxepin Hcl) 10 Mg Cap, 1 CAP PO QHSP PRN for insomnia 01/02/23 Doxazosin Mesylate (Doxazosin Mesylate) 4 Mg Tab, 1 TAB PO DAILY 01/02/23 Gabapentin (Gabapentin) 300 Mg Cap, 1 CAP PO TID 01/02/23 Vortioxetine Hydrobromide (Trintellix) 20 Mg Tab, 1 TAB PO DAILY for ANXIETY 01/02/23 Losartan Potassium (Losartan Potassium) 50 Mg Tab, 1 TAB PO DAILY 01/02/23 Losartan Potassium (Losartan Potassium) 50 Mg Tab, 50 MG PO DAILY, TAB 02/15/21 Doxazosin Mesylate (Doxazosin Mesylate) 4 Mg Tab, 4 MG PO DAILY, TAB 02/15/21 Information Source: Patient Mode of Arrival: Ambulatory Severity: Moderate Timing: Hours Duration: Since onset Location: Substernal Radiation: No Radiation Quality: Sharp Onset: At Rest Cardiac Risk Factors: HTN History of: Similar pain in past, Angina, Other Modifying Factors: Nothing Past Medical History PAST MEDICAL HISTORY: AFIB, Asthma, GERD, HTN, UTI'S Surgical History: Denies all surgeries Family History Family History: Reviewed,noncontributory to illness Social History Smoker: Non-Smoker Alcohol: Denies ETOH Use Drugs: Denies Drug Use Lives In: Home Constitutional: reports: weakness; denies: chills, diaphoresis, fatigue, fever, malaise, sweats, others EENTM: denies: blurred vision, double vision, ear bleeding, ear discharge, ear drainage, ear pain, ear ringing, eye pain, eye redness, hearing loss, mouth pain, mouth swelling, nasal discharge, nose bleeding, nose congestion, nose pain, photophobia, tearing, throat pain, throat swelling, voice changes, others Respiratory: denies: cough, hemoptysis, orthopnea, SOB at rest, shortness of breath, SOB with excertion, stridor, wheezing, others Cardiovascular: reports: chest pain; denies: dizzy spells, diaphoresis, Dyspnea on exertion, edema, irregular heart beat, left arm pain, lightheadedness, palpitations, PND, syncope, others Gastrointestinal: denies: abdomen distended, abdominal pain, blood streaked bowels, constipated, diarrhea, dysphagia, difficulty swallowing, hematemesis, melena, nausea, poor appetite, poor fluid intake, rectal bleeding, rectal pain, vomiting, others Genitourinary: denies: burning, dysuria, flank pain, frequency, hematuria, incontinence, penile discharge, penile sore, pain, testicle pain, testicle swelling, urgency, others Neurological: denies: dizziness, fainting, headache, left sided numbness, left sided weakness, numbness, paresthesia, pre-existing deficit, right sided numbness, right sided weakness, seizure, speech problems, tingling, tremors, weakness, others Musculoskeletal: denies: back pain, gout, joint pain, joint swelling, muscle pa in, muscle stiffness, neck pain, others Integumetry: denies: bruises, change in color, change in hair/nails, dryness, laceration, lesions, lumps, rash, wounds, others Allergic/Immunocompromised: denies: Difficulty Healing, Frequent Infections, Hives, Itching, others Hematologic/Lymphatic: denies: anemia, blood clots, easy bleeding, easy bruising, swollen glands, others Endocrine: denies: excessive hunger, excessive sweating, excessive thirst, excessive urination, flushing, intolerance to cold, intolerance to heat, unexplained weight gain, unexplained weight loss, others Psychiatric: denies: anxiety, bipolar disorder, depression, hopeless, panic disorder, schizophrenia, sleepless, suicidal, others All Other Systems: Reviewed and Negative Physical Exam General Appearance: Moderate Distress HEENT: Normal ENT Inspection, Pharynx Normal, TMs Normal Neck: Full Range of Motion, Non-Tender, Normal, Normal Inspection Respiratory: Chest Non-Tender, Lungs Clear, No Accessory Muscle Use, No Respiratory Distress, Normal Breath Sounds Cardiovascular: No Edema, No JVD, No Murmur, No Gallop, Normal Peripheral Pulses, Regular Rate/Rhythm Breast Exam: Deferred Gastrointestinal: No Organomegaly, Non Tender, No Pulsatile Mass, Normal Bowel Sounds, Soft Genitalia: Deferred Pelvic: Deferred Rectal: Deferred Extremities: No calf tenderness, Normal capillary refill, Normal inspection, Normal range of motion, Non-tender, No pedal edema Musculoskeletal : Apperance: Normal Neurologic: Alert, merchandise flow team leader II-XII nml as Tested, No Motor Deficits, Normal Affect, Normal Mood, No Sensory Deficits Cerebellar Function: Normal Reflexes: Normal Skin: Dry, Normal Color, Warm Peripheral Pulses: 3+ Radial (R), 3+ Radial (L) Lymphatic: No Adenopathy Was a procedure done? Was a procedure done?: No CP Differential Dx Differential Diagnosis: A-fib, A-Flutter, Angina, Anxiety / Panic Attack, Atrial Dysrhythmia, Electrolyte Disorder, N/A Differential Diagnosis: Angina, Chest Wall Pain, Cholelithiasis, Costochondritis, Myocardial Infarction, Pericarditis X-Ray, Labs, Meds, VS Vital Signs Date Time Temp Pulse Resp B/P (MAP) Pulse Ox O2 Delivery O2 Flow Rate FiO2 08/18/25 14:47 63 17 129/77 (94) 100 08/18/25 13:15 57 08/18/25 13:02 70 08/18/25 13:02 97.9 70 18 134/72 (92) 96 97.9 08/18/25 12:16 64 08/18/25 12:10 97.9 69 18 124/65 95 97.9 Lab Test 08/18/25 13:20 08/18/25 12:21 Range/Units Troponin I High Sensitivity 3 L < 3 L </=54 ng/L White Blood Count 7.2 4.4-10.8 10^3/uL Red Blood Count 4.43 L 4.5-5.90 10^6/uL Hemoglobin 14.0 13.5-17.5 g/dL Hematocrit 40.6 L 41.0-53.0 % Mean Corpuscular Volume 91.6 80.0-100.0 fL Mean Corpuscular Hemoglobin 31.7 28.0-32.0 pg Mean Corpuscular Hemoglobin Concent 34.6 32.0-36.0 g/dL Red Cell Distribution Width 13.7 11.8-14.3 % Platelet Count 199 140-450 10^3/uL Mean Platelet Volume 7.4 6.9-10.8 fL Neutrophils (%) (Auto) 71.3 37.0-80.0 % Lymphocytes (%) (Auto) 18.9 10.0-50.0 % Monocytes (%) (Auto) 8.3 0.0-12.0 % Eosinophils (%) (Auto) 1.2 0.0-7.0 % Basophils (%) (Auto) 0.3 0.0-2.0 % Neutrophils # (Auto) 5.1 1.6-8.6 10 ^3/uL Lymphocytes # (Auto) 1.4 0.4-5.4 10 ^3/uL Monocytes # (Auto) 0.6 0-1.3 10 ^3/uL Eosinophils # (Auto) 0.1 0-0.8 10 ^3/uL Basophils # (Auto) 0 0-0.2 10 ^3/uL Nucleated Red Blood Cells 0.1 % Sodium Level 136 136-145 mmol/L Potassium Level 4.3 3.5-5.1 mmol/L Chloride Level 100 98-107 mmol/L Carbon Dioxide Level 30 20-31 mmol/L Anion Gap 6 5-15 Blood Urea Nitrogen 19 9-23 mg/dL Creatinine 1.02 0.700-1.30 mg/dL Glomerular Filtration Rate Calc 74 >90 mL/min BUN/Creatinine Ratio 18.6 10.0-20.0 Serum Glucose 84 74-106 mg/dL Calcium Level 9.5 8.7-10.4 mg/dL Current Medications Medications (Trade) Dose Ordered Sig/Kemar Route Start Time Stop Time Status Last Admin Aspirin 325 mg ONCE ONCE PO 08/18/25 14:00 08/18/25 14:01 DC 08/18/25 14:00 Patient alert. Came in because of chest pain. Was given aspirin. Vitals stable. Continues to have chest pain. Was given nitro. Has risk factors for coronary artery disease. WBC within normal limits. EKG does not show any acute changes. Possibly will need echocardiogram. Cardiology consultation. Explained to the patient. Continue monitoring. Time of 1ST Reevaluation: 14:38 Reevaluation 1ST: Unchanged Patient Education/Counseling: Diagnosis, Treatment, Prognosis Family Education/Counseling: No Family Present SEPSIS Sepsis Screen Date sepsis recognized/suspect: Aug 18, 2025 Time Sepsis recognized/suspect: 2 Recent Procedure: No On Antibiotic Therapy: No Respiratory Rate >20: No Heart Rate >90: No Temp<36 C (96.8 F) or >38.3 C: No SBP <90 or MAP <65 mmHG: No New Acute Mental Status Change: No Is the patient on CPAP, BIPAP,: No Physician Orders Heplock Iv (08/18/25 12:13) Inventory Control Associate (08/18/25 12:13) Blood Pressure (08/18/25 12:13) Oxygen (08/18/25 12:13) Pulse Oximetry (08/18/25 12:13) Chest Two Views Routine (08/18/25 12:31) Electrocardigram (08/18/25 13:13) Electrocardigram (08/18/25 15:13) Vital Signs Date Time Temp Pulse Resp B/P (MAP) Pulse Ox O2 Delivery O2 Flow Rate FiO2 08/18/25 14:47 63 17 129/77 (94) 100 08/18/25 13:15 57 08/18/25 13:02 70 08/18/25 13:02 97.9 70 18 134/72 (92) 96 97.9 08/18/25 12:16 64 08/18/25 12:10 97.9 69 18 124/65 95 97.9 Laboratory Tests Test 08/18/25 12:21 White Blood Count 7.2 10^3/uL (4.4-10.8) Medications Medications Dose Ordered Sig/Kemar Route Start Time Stop Time Status Last Admin Dose Admin Aspirin 325 mg ONCE ONCE PO 08/18/25 14:00 08/18/25 14:01 DC 08/18/25 14:00 Departure 1 Departure Time of Disposition: 16:17 Impression: Primary Impression: Chest pain of unknown etiology Disposition: ADMITTED INPATIENT Admit to: Med Surg Condition: Guarded Critical Care Note Critical Care Time?: No Stability Stability form required: No Heart Score Heart Score: Heart Score Response (Comments) Value History Moderate Suspicious 1 EKG Normal 0 Age >65 2 Risk Factors >3 or Hx ASHD 2 Troponin Normal limit 0 Total 5 I personally scribed for ANIKA BAHENA MD ([email or web address]) on 08/18/25 at 14:38. Electronically submitted by Graciela Cabezas ([facility]). ANIKA BAHENA MD Aug 18, 2025 14:38
[2025-08-18] MEDS ORDERED: NITROGLYCERIN 0.4 MG SL TAB SL PRN (17:15)
[2025-08-18] MEDS ORDERED: ALBUTEROL SULF 2.5 MG/0.5ML(0.5%) NEB SOLN NEB PRN (17:15)
[2025-08-18] MEDS ORDERED: MORPHINE SULFATE INJ 2 MG/ml SYRG IV PRN (17:15)
[2025-08-18] MEDS ORDERED: IPRATROPIUM BROM 0.5 MG/2.5ML INH SOL NEB PRN (17:15)
--- NOTE | 2025-08-18 17:31 | DVHHPRES ---
History of Present Illness Resident Creating Document: DAVID COWART RESIDENT History of Present Illness Patient is a 80-year-old male with a medical history of hypertension, atrial fibrillation, major depression asthma, BPH presented to the ED with a chief complaint of acute chest pain. Patient reported he has been having this pain for 2-3 weeks , intermittent, pressure-like substernal, nonradiating, worsened on exertion with walking or doing work and relieved on rest. Patient reports he has a pre k special education teacher Dr. Gautam and saw him about 3 weeks but that time he had this has been but forgot to told him about it. ECG showed sinus rhythm without any ST or T-wave changes, troponins were normal. Since the patient has risk factors and the chest pain is typical with a heart score of 4-5, he will be admitted for further evaluation. Medical history: As per HPI Surgical history: Denies Social history: Patient denies smoking, alcohol, drug use Home medications: Losartan 50 mg daily, gabapentin 300 mg, Trintellix 20 mg, tamsulosin 0.4 mg, metoprolol 2.5 mg, Eliquis 5 mg b.i.d., Symbicort inhaler for asthma Review of Systems Review of Systems Patient reports chest pain is better, denies shortness of the breath Denies nausea, vomiting, abdominal pain, dysuria, headache or dizziness Allergies: Coded Allergies: NO KNOWN ALLERGIES (Unverified , 10/01/15) Exam Vital Signs Vital Signs Date Time Temp Pulse Resp B/P (MAP) Pulse Ox O2 Delivery O2 Flow Rate FiO2 08/18/25 16:48 97.6 53 16 157/93 (114) 98 97.6 Exam Skin - Patients skin is warm and dry. HEENT - normocephalic, atraumatic, moist mucous membranes, no conjunctival pallor or scleral icterus. Neck - full ROM, no LAD, no JVD Pulmonary - B/L clear breath sounds without wheezing or rales cardiovascular - regular S1,S2 heard, no added sounds, no murmurs heard. GI - soft, nontender abdomen. no hepatospleenomegaly. Bowel sounds normoactive Neurological - Patient is A/O X 4 . Bilateral upper extremity strength 5/5, bilateral lower extremity strength 5/5, no facial droop, normal speech, no tremor, no sensory deficiets. Labs/Xrays Labs Test 08/18/25 13:20 08/18/25 12:21 Range/Units Troponin I High Sensitivity 3 L </=54 ng/L White Blood Count 7.2 4.4-10.8 10^3/uL Red Blood Count 4.43 L 4.5-5.90 10^6/uL Hemoglobin 14.0 13.5-17.5 g/dL Hematocrit 40.6 L 41.0-53.0 % Mean Corpuscular Volume 91.6 80.0-100.0 fL Mean Corpuscular Hemoglobin 31.7 28.0-32.0 pg Mean Corpuscular Hemoglobin Concent 34.6 32.0-36.0 g/dL Red Cell Distribution Width 13.7 11.8-14.3 % Platelet Count 199 140-450 10^3/uL Mean Platelet Volume 7.4 6.9-10.8 fL Neutrophils (%) (Auto) 71.3 37.0-80.0 % Lymphocytes (%) (Auto) 18.9 10.0-50.0 % Monocytes (%) (Auto) 8.3 0.0-12.0 % Eosinophils (%) (Auto) 1.2 0.0-7.0 % Basophils (%) (Auto) 0.3 0.0-2.0 % Neutrophils # (Auto) 5.1 1.6-8.6 10 ^3/uL Lymphocytes # (Auto) 1.4 0.4-5.4 10 ^3/uL Monocytes # (Auto) 0.6 0-1.3 10 ^3/uL Eosinophils # (Auto) 0.1 0-0.8 10 ^3/uL Basophils # (Auto) 0 0-0.2 10 ^3/uL Nucleated Red Blood Cells 0.1 % Sodium Level 136 136-145 mmol/L Potassium Level 4.3 3.5-5.1 mmol/L Chloride Level 100 98-107 mmol/L Carbon Dioxide Level 30 20-31 mmol/L Anion Gap 6 5-15 Blood Urea Nitrogen 19 9-23 mg/dL Creatinine 1.02 0.700-1.30 mg/dL Glomerular Filtration Rate Calc 74 >90 mL/min BUN/Creatinine Ratio 18.6 10.0-20.0 Serum Glucose 84 74-106 mg/dL Calcium Level 9.5 8.7-10.4 mg/dL SEPSIS Sepsis Screen Date sepsis recognized/suspect: Aug 18, 2025 Time Sepsis recognized/suspect: 1211 Recent Procedure: No On Antibiotic Therapy: No Respiratory Rate >20: No Heart Rate >90: No Temp<36 C (96.8 F) or >38.3 C: No SBP <90 or MAP <65 mmHG: No New Acute Mental Status Change: No Is the patient on CPAP, BIPAP,: No Physician Orders Heplock Iv (08/18/25 12:13) Laboratory Chemical Assistant (08/18/25 12:13) Blood Pressure (08/18/25 12:13) Oxygen (08/18/25 12:13) Pulse Oximetry (08/18/25 12:13) Chest Two Views Routine (08/18/25 12:31) Electrocardigram (08/18/25 13:13) Electrocardigram (08/18/25 15:13) Admit (08/18/25 17:03) Nitroglycerin Sublingual (Ntrostat Subli (08/18/25 17:15) Morphine Sulfate Injection (08/18/25 17:15) Oxygen By Nasal Cannula (08/18/25 17:03) Stat Ekg For Chest Pain (08/18/25 17:03) Notify Md Of Changes From Base (08/18/25 17:03) Configuration Consultant For 24 Hours (08/18/25 17:03) Emergency Dysrhythmia Protocol (08/18/25 17:03) Aspirin Enteric Coated Tablet (Ecotrin E (08/19/25 10:00) Atorvastatin (Lipitor) (08/18/25 22:00) Albuterol Medneb (Ventolin Medneb) (08/18/25 17:15) Ipratropium Medneb (Atrovent Medneb) (08/18/25 17:15) Urinalysis (08/18/25 17:03) Tamsulosin Hydrochloride (Flomax) (08/18/25 18:00) Enoxaparin Sodium (Lovenox) (08/18/25 22:00) Losartan Tablet (Cozaar Tablet) (08/19/25 10:00) Cardiac Diet-2gna,Lofat,Lochol (08/18/25 Dinner) Pantoprazole Tablet (Protonix Tablet) (08/18/25 17:15) Pantoprazole Tablet (Protonix Tablet) (08/19/25 06:00) Hepatic Panel (08/18/25 17:03) Covid19 Antigen Nabila (08/18/25 ) Rapid Influenza A&B (08/18/25 17:03) Vital Signs Date Time Temp Pulse Resp B/P (MAP) Pulse Ox O2 Delivery O2 Flow Rate FiO2 08/18/25 16:48 97.6 53 16 157/93 (114) 98 97.6 08/18/25 14:47 63 17 129/77 (94) 100 08/18/25 13:15 57 08/18/25 13:02 70 08/18/25 13:02 97.9 70 18 134/72 (92) 96 97.9 08/18/25 12:16 64 08/18/25 12:10 97.9 69 18 124/65 95 97.9 Laboratory Tests Test 08/18/25 12:21 White Blood Count 7.2 10^3/uL (4.4-10.8) Medications Medications Dose Ordered Sig/Kemar Route Start Time Stop Time Status Last Admin Dose Admin Aspirin 325 mg ONCE ONCE PO 08/18/25 14:00 08/18/25 14:01 DC 08/18/25 14:00 325 MG Assessment/Plan Assessment/Plan Acute chest pain likely angina r/o acute coronary syndrome h/o paroxysmal atrial fibrillation status post ablation, currently in sinus [place] Hypertensive heart disease h/o BPH h/o asthma, no exacerbation Dyspepsia , GERD - started aspirin and atorvastatin - patient at home taking Eliquis, started on Lovenox inpatient therapeutic dose - continued on losartan 50 mg daily, tamsulosin 0.4 mg - held metoprolol since the patient has bradycardia - duo nebs as needed - cardiology consult - Protonix daily Goals of care discussed with the patient for over 80 minutes. Full code Time spent: 33 minutes Plan discussed with Dr. Maria Plan discussed with: Patient, Other (RN) My Orders Orders - DAVID COWART RESIDENT Procedure Category Date Status Time Admit ADMIT 08/18/25 Transmitted 17:03 Nitroglycerin PHA 08/18/25 Transmitted Sublingual (Ntrostat 17:15 Morphine Sulfate PHA 08/18/25 Transmitted Injection 17:15 Oxygen By Nasal RT 08/18/25 Transmitted Cannula 17:03 Stat Ekg For Chest KENDRICK 08/18/25 Transmitted Pain 17:03 Notify Of Changes KENDRICK 08/18/25 Transmitted From Base 17:03 Configuration Consultant For [facility] 08/18/25 Transmitted 24 Hours 17:03 Emergency Dysrhythmia [facility] 08/18/25 Transmitted Protocol 17:03 Aspirin Enteric PHA 08/19/25 Transmitted Coated Tablet 10:00 Atorvastatin (Lipitor) PHA 08/18/25 Transmitted 22:00 Albuterol Medneb PHA 08/18/25 Transmitted (Ventolin Medneb) 17:15 Ipratropium Medneb PHA 08/18/25 Transmitted (Atrovent Medneb) 17:15 Urinalysis LAB 08/18/25 Transmitted 17:03 Tamsulosin PHA 08/18/25 Transmitted Hydrochloride (Flomax) 18:00 Enoxaparin Sodium PHA 08/18/25 Transmitted (Lovenox) 22:00 Losartan Tablet PHA 08/19/25 Transmitted (Cozaar Tablet) 10:00 Cardiac DIET 08/18/25 Transmitted Diet-2gna,Lofat,Lochol Dinner Pantoprazole Tablet PHA 08/18/25 Transmitted (Protonix Tablet) 17:15 Pantoprazole Tablet PHA 08/19/25 Transmitted (Protonix Tablet) 06:00 Hepatic Panel LAB 08/18/25 Transmitted 17:03 Covid19 Antigen Nabila LAB 08/18/25 Transmitted Rapid Influenza A&B LAB 08/18/25 Transmitted 17:03 Date of Service: Aug 18, 2025 Billing Provider: POLO MARIA MD Common Visit Codes: [id number] INP/OBS CARE (HIGH) Secondary Visit Codes: [id number] CARE PLAN 30 MINUTES DAVID COWART RESIDENT Aug 18, 2025 17:31
[2025-08-18 18:06] LABS: COVID19 ANTIGEN SOFIA FIA NEGATIVE (NEGATIVE)
[2025-08-18] MEDS: TAMSULOSIN HYDROCHLORIDE 0.4 MG CAP PO SCH (18:23)
[2025-08-18] MEDS: PANTOPRAZOLE 40 MG TAB PO ONE (18:23)
[2025-08-18 18:35] LABS: Alanine Aminotransferase 15.0 U/L (7-40); Albumin 3.9 g/dL (3.2-4.8); Alkaline Phosphatase 101.0 U/L (46-116); Bilirubin, Total 0.4 mg/dL (0.2-1.0); Total Protein 6.2 g/dL (5.7-8.2)
[2025-08-18 18:58] LABS: Bilirubin, Direct 0.1 mg/dL (<0.3)
--- NOTE | 2025-08-18 19:12 | ECG ---
[facility] Heart Test Date: 2025-08-18 Test Time: 13:15:01 Pat Name: ARIANNE BUCK Department: ED Room: 0297T Gender: M Evs Tech: RAFAEL : 1945 Requested By: ANIKA BAHENA Order Number: [id number] Reading MD: Arianne Quach Measurements Intervals [place] Rate: 57 P: 20 TX: 175 QRS: 11 QRSD: 98 T: 56 QT: 411 QTc: 401 Interpretive Statements Sinus rhythm Low voltage, precordial leads Electronically Signed On 08-22-2025 14:58:26 PST by Arianne Quach Please click the below link to view image of tracing.
[2025-08-18 19:14] LABS: Urine Protein, UAD TRACE (Negative); Urine WBC Clumps PRESENT /hpf (None Seen)
[2025-08-18 19:50] VITALS: BP 138/70; PULSE 54; RESP 18; TEMP 98.7; O2SAT 97
[2025-08-18 19:55] VITALS: BP 138/70; PULSE 54; RESP 18; TEMP 98.7; O2SAT 97
[2025-08-18] MEDS ORDERED: TRAZ-181 PO (20:00)
[2025-08-18] MEDS ORDERED: TAMS0.4C39 PO (20:00)
[2025-08-18] MEDS ORDERED: APIX2.5T PO (20:00)
[2025-08-18] MEDS ORDERED: PANT40T PO (20:00)
[2025-08-18 20:18] VITALS: PULSE 54; RESP 18; O2SAT 97
[2025-08-18 21:07] VITALS: BP 138/78; PULSE 67; RESP 14; TEMP 98.7; O2SAT 96
[2025-08-18] MEDS: ATORVASTATIN 20 MG TAB PO SCH (21:18)
[2025-08-18] MEDS: ENOXAPARIN SOD 80 MG/0.8ML SYRINGE SC SCH (21:19)
[2025-08-18] MEDS: SODIUM CHLORIDE 0.9% 500 ML IV ONE (22:25)
[2025-08-19] VITALS (10 sets, daily range): BP systolic 129–154; BP diastolic 65–89; PULSE 53–69; RESP 16–20; TEMP 98.1–98.6; O2SAT 95–96
[2025-08-19] MEDS: PANTOPRAZOLE 40 MG TAB PO SCH (05:35)
[2025-08-19 06:28] LABS: Hematocrit 37.5 % (41.0-53.0); Hemoglobin 13.3 g/dL (13.5-17.5); Mean Corpuscular Hemoglobin 32.3 pg (28.0-32.0); Mean Corpuscular Volume 90.8 fL (80.0-100.0); Nucleated Red Blood Cells % 0.0 %
[2025-08-19 06:32] LABS: Chloride 102 mmol/L (98-107); Potassium 4.0 mmol/L (3.5-5.1); Sodium 137 mmol/L (136-145)
[2025-08-19 06:33] LABS: Anion Gap 9 (5-15); Calcium 8.9 mg/dL (8.7-10.4); Carbon Dioxide 26 mmol/L (20-31)
[2025-08-19 06:38] LABS: BUN/Creatinine Ratio 25.9 (10.0-20.0); Blood Urea Nitrogen 21 mg/dL (9-23); Glucose 88 mg/dL (74-106); INR 1.08 (0.9-1.15); Partial Thromboplastin Time 38.3 SEC (24.5-34.5); Prothrombin Time 11.4 sec (9.3-11.8)
[2025-08-19] MEDS: LOSARTAN POTASSIUM 50 MG TAB PO SCH (08:44)
[2025-08-19] MEDS: ASPirin-EC 81 mg tab PO SCH (08:44)
--- NOTE | 2025-08-19 10:11 | DVHINCON2 ---
Date of service: Aug 19, 2025 History of Present Illness 80 yo M with mild cad, hx of afib s/p ablation in december 2024 , htn, hl admitted for atypical chest pain and severe htn. pt had LHC here 2021 showing mild cad. he has appt to see his cards after a monitor. hes in SR now Past Medical History reviewed Family History: Breast cancer G8 SISTER, Onset:50's - 60 Cancer G8 MOTHER (73 PANCREATIC, NOW ) G8 MOTHER, Onset:40's - 50 ( pancreatic cancer) G8 SISTER, Onset:60 years & older (BOTH SISTERS HAD BREST CANCER, STILL ALOIVE) G8 BROTHER, Onset:60 years & older Cancer G8 MOTHER (73 PANCREATIC, NOW ) G8 MOTHER, Onset:40's - 50 ( pancreatic cancer) G8 SISTER, Onset:60 years & older (BOTH SISTERS HAD BREST CANCER, STILL ALOIVE) G8 BROTHER, Onset:60 years & older FH: heart attack G8 FATHER (73) FH: pancreatic cancer G8 MOTHER (73) Family history: Cardiovascular disease G8 FATHER (SC 73, ) G8 FATHER, Onset:60 years & older Family history: Cardiovascular disease G8 FATHER (SC 73, ) G8 FATHER, Onset:60 years & older Heart attack Hypercholesterolemia Hypertension G8 MOTHER G8 FATHER G8 SISTER G8 BROTHER Allergies: Coded Allergies: NO KNOWN ALLERGIES (Unverified , 10/01/15) Home Meds Active Scripts Metoprolol Succinate (Toprol Xl) 50 Mg Tab, 12.5 MG PO DAILY for 30 Days, #8 TAB Prov:JEFFREY KNIGHT RESIDENT 07/25/24 Reported Medications Pantoprazole Sodium Sesquihydr (Pantoprazole Sodium) 40 Mg Tab, 40 MG PO DAILY, TAB 08/18/25 Tamsulosin Hcl (Tamsulosin Hcl) 0.4 Mg Cap, 0.4 MG PO HS, CAP 08/18/25 Apixaban Base (ELIQUIS) 2.5 Mg Tab, 5 MG PO BID, TAB 08/18/25 Trazodone HCl (Trazodone Hydrochloride) 50 Mg Tab, 50 MG PO HS, TAB 08/18/25 Budesonide-Formoterol Fumarate (Budesonide/Formoterol Fum 160-4.5 Mcg/Act) 1 Aer Aer, INH 01/02/23 Gabapentin (Gabapentin) 300 Mg Cap, 1 CAP PO BID 01/02/23 Vortioxetine Hydrobromide (Trintellix) 20 Mg Tab, 1 TAB PO DAILY for ANXIETY 01/02/23 Losartan Potassium (Losartan Potassium) 50 Mg Tab, 50 MG PO DAILY, TAB 02/15/21 Current Medications Current Medications Medications (Trade) Dose Ordered Sig/Kemar Route PRN Reason Start Time Stop Time Status Last Admin Nitroglycerin (Ntrostat Sublingual) 0.4 mg Q5MINP PRN SL FOR CHEST PAIN 08/18/25 17:15 Morphine Sulfate 2 mg Q30M PRN IV FOR CHEST PAIN 08/18/25 17:15 Aspirin (Ecotrin Enteric Coated Tablet) 81 mg DAILY PO 08/19/25 10:00 08/19/25 08:44 Atorvastatin Calcium (Lipitor) 40 mg HS PO 08/18/25 22:00 Albuterol (Ventolin Medneb) 2.5 mg Q8HPRN PRN NEB SHORTNESS OF BREATH 08/18/25 17:15 Ipratropium [place] (Atrovent Medneb) 0.5 mg Q8HPRN PRN NEB SHORTNESS OF BREATH 08/18/25 17:15 Tamsulosin HCl (Flomax) 0.4 mg QPM PO 08/18/25 18:00 08/18/25 18:23 Enoxaparin Sodium (Lovenox) 80 mg Q12HR SC 08/18/25 22:00 08/19/25 08:45 Losartan Potassium (Cozaar Tablet) 50 mg DAILY PO 08/19/25 10:00 08/19/25 08:44 Pantoprazole Sodium (Protonix Tablet) 40 mg DAILY@0600 PO 08/19/25 06:00 08/19/25 05:35 Ceftriaxone Sodium 50 ml @ 100 mls/hr Q24H IV 08/19/25 21:00 Trazodone HCl (Desyrel) 50 mg HS PO 08/19/25 22:00 08/18/25 23:44 DC Trazodone HCl (Desyrel) 50 mg HS PO 08/18/25 23:45 08/18/25 23:49 Review of Systems 10 pt ros otherwise negative Vital Signs Vital Signs Date Time Temp Pulse Resp B/P (MAP) Pulse Ox O2 Delivery O2 Flow Rate FiO2 08/19/25 08:44 155/65 08/19/25 07:30 58 18 96 Room Air* 0 21 08/19/25 05:00 98.6 98.6 Physical Exam nad s1 s2 rrr ctab soft ntt/nd no edema Labs/Diagnostic Data Labs Test 08/19/25 05:41 08/18/25 17:27 08/18/25 13:20 Range/Units White Blood Count 7.1 4.4-10.8 10^3/uL Red Blood Count 4.13 L 4.5-5.90 10^6/uL Hemoglobin 13.3 L 13.5-17.5 g/dL Hematocrit 37.5 L 41.0-53.0 % Mean Corpuscular Volume 90.8 80.0-100.0 fL Mean Corpuscular Hemoglobin 32.3 H 28.0-32.0 pg Mean Corpuscular Hemoglobin Concent 35.5 32.0-36.0 g/dL Red Cell Distribution Width 13.6 11.8-14.3 % Platelet Count 180 140-450 10^3/uL Mean Platelet Volume 7.5 6.9-10.8 fL Neutrophils (%) (Auto) 66.6 37.0-80.0 % Lymphocytes (%) (Auto) 22.8 10.0-50.0 % Monocytes (%) (Auto) 8.1 0.0-12.0 % Eosinophils (%) (Auto) 2.2 0.0-7.0 % Basophils (%) (Auto) 0.3 0.0-2.0 % Neutrophils # (Auto) 4.7 1.6-8.6 10 ^3/uL Lymphocytes # (Auto) 1.6 0.4-5.4 10 ^3/uL Monocytes # (Auto) 0.6 0-1.3 10 ^3/uL Eosinophils # (Auto) 0.2 0-0.8 10 ^3/uL Basophils # (Auto) 0 0-0.2 10 ^3/uL Nucleated Red Blood Cells 0.0 % Prothrombin Time 11.4 9.3-11.8 sec Prothrombin Time INR 1.08 0.9-1.15 Activated Partial Thromboplast Time 38.3 H 24.5-34.5 SEC Sodium Level 137 136-145 mmol/L Potassium Level 4.0 3.5-5.1 mmol/L Chloride Level 102 98-107 mmol/L Carbon Dioxide Level 26 20-31 mmol/L Anion Gap 9 5-15 Blood Urea Nitrogen 21 9-23 mg/dL Creatinine 0.81 0.700-1.30 mg/dL Glomerular Filtration Rate Calc 89 >90 mL/min BUN/Creatinine Ratio 25.9 H 10.0-20.0 Serum Glucose 88 74-106 mg/dL Calcium Level 8.9 8.7-10.4 mg/dL Urine Color Yellow Yellow Urine Clarity Turbid H Clear Urine pH 6.0 5.0-9.0 Urine Specific [place] 1.024 1.001-1.035 Urine Protein Trace H Negative Urine Ketones Trace Negative Urine Blood Negative Negative /uL Urine Nitrite 2+ H Negative Urine Bilirubin Negative Negative Urine Urobilinogen Normal Negative mg/dL Urine Leukocyte Esterase 3+ Negative /uL Urine RBC 3 0 - 3 /hpf Urine WBC Clumps Present None Seen /hpf Urine Microscopic WBC 243 H 0-3 /HPF Urine Squamous Epithelial Cells Few <5 /hpf Urine Bacteria Many H None Seen /hpf Urine Mucus Few None Seen Urine Glucose Normal Normal mg/dL Influenza Type A Antigen Negative Negative Influenza Type B Antigen Negative Negative SARS-CoV-2 Antigen (Rapid) Negative NEGATIVE Total Bilirubin 0.4 0.2-1.0 mg/dL Direct Bilirubin 0.1 <0.3 mg/dL Aspartate Amino Transferase (AST) 14 13-40 U/L Alanine Aminotransferase (ALT) 15 7-40 U/L Alkaline Phosphatase 101 46-116 U/L Troponin I High Sensitivity 3 L </=54 ng/L Total Protein 6.2 5.7-8.2 g/dL Albumin 3.9 3.2-4.8 g/dL Assessment r/o acs cad mild afib s/pl ablation htn hl Plan/Recommendation cont doac pt is SR now, cont losartan add BB for bp control can resume doac and dc lovenox check echo acs ruled out, normal ecg, cath reviewed 2021 Plan discussed with: Patient ONEIL,TANVIR Pascual MD Aug 19, 2025 10:11
--- NOTE | 2025-08-19 15:02 | DVHPN2 ---
Subjective 80-year-old male with a known history of chronic AFib, hypertension, asthma, BPH, major depression, chronic insomnia presented to the hospital with chest pain. Patient is currently denies any chest pain. Changes from previous H/P or p: No Changes Objective Vitals Vital Signs Date Time Temp Pulse Resp B/P (MAP) Pulse Ox O2 Delivery O2 Flow Rate FiO2 08/19/25 12:49 98.4 58 16 146/78 (100) 96 98.4 08/19/25 07:30 Room Air* 0 21 Intake/Output Intake and Output 08/19/25 07:00 Intake Total 200 ml Output Total 450 ml Balance -250 ml Intake Oral 200 ml Output Urine Total 450 ml Exam HEENT pupils are reactive Neck is supple CV is S1-S2 regular rate and rhythm Diminished breath sounds bases GI positive bowel sound Extremity no edema [employer] no motor deficit Medications Current Medications Medications Dose Ordered Sig/Kemar Route Start Time Stop Time Status Last Admin Dose Admin Nitroglycerin 0.4 mg Q5MINP PRN SL 08/18/25 17:15 Morphine Sulfate 2 mg Q30M PRN IV 08/18/25 17:15 Aspirin 81 mg DAILY PO 08/19/25 10:00 08/19/25 08:44 81 MG Atorvastatin Calcium 40 mg HS PO 08/18/25 22:00 Albuterol 2.5 mg Q8HPRN PRN NEB 08/18/25 17:15 Ipratropium [place] 0.5 mg Q8HPRN PRN NEB 08/18/25 17:15 Tamsulosin HCl 0.4 mg QPM PO 08/18/25 18:00 08/18/25 18:23 0.4 MG Enoxaparin Sodium 80 mg Q12HR SC 08/18/25 22:00 08/19/25 08:45 80 MG Losartan Potassium 50 mg DAILY PO 08/19/25 10:00 08/19/25 08:44 50 MG Pantoprazole Sodium 40 mg DAILY@0600 PO 08/19/25 06:00 08/19/25 05:35 40 MG Ceftriaxone Sodium 50 ml @ 100 mls/hr Q24H IV 08/19/25 21:00 Trazodone HCl 50 mg HS PO 08/18/25 23:45 08/18/25 23:49 50 MG Metoprolol Succinate 25 mg DAILY PO 08/20/25 10:00 Laboratory Results Laboratory Tests 08/19/25 05:41 Chemistry Test 08/19/25 05:41 Calcium Level 8.9 mg/dL (8.7-10.4) Coagulation Test 08/19/25 05:41 Prothrombin Time 11.4 sec (9.3-11.8) Prothrombin Time INR 1.08 (0.9-1.15) Activated Partial Thromboplast Time 38.3 SEC (24.5-34.5) H Urinalysis Test 08/18/25 17:27 Urine Color Yellow (Yellow) Urine Clarity Turbid (Clear) H Urine pH 6.0 (5.0-9.0) Urine Specific [place] 1.024 (1.001-1.035) Urine Protein Trace (Negative) H Urine Ketones Trace (Negative) Urine Blood Negative /uL (Negative) Urine Nitrite 2+ (Negative) H Urine Bilirubin Negative (Negative) Urine Urobilinogen Normal mg/dL (Negative) Urine Leukocyte Esterase 3+ /uL (Negative) Urine RBC 3 /hpf (0 - 3) Urine WBC Clumps Present /hpf (None Seen) Urine Microscopic WBC 243 /HPF (0-3) H Urine Squamous Epithelial Cells Few /hpf (<5) Urine Bacteria Many /hpf (None Seen) H Urine Mucus Few (None Seen) Urine Glucose Normal mg/dL (Normal) Assessment/Plan Assessment/Plan 80-year-old male with a known history of chronic AFib status post cardiac ablation, hypertension, asthma, BPH, major depression, chronic insomnia presented to the hospital with chest pain. 1. Chest pain rule out [place] 2. Paroxysmal AFib status post currently ablation in the past 3. Hypertension 4. Chronic asthma 5. BPH 6. Chronic insomnia 7. Major depression currently compensated -2D echo, cardiology consultation, discharge plan. Plan discussed with: Patient My Orders Orders - MACO CHANEY MD Procedure Category Date Status Time Echo 2d Mode Cardiac US 08/19/25 Logged DOP 14:04 Problem List: (1) CHEST PAIN NOS (2) History of atrial fibrillation Date of Service: Aug 19, 2025 Billing Provider: MACO CHANEY MD Common Visit Codes: [id number] INP/OBS CARE(HIGH) MACO CHANEY MD Aug 19, 2025 15:02
[2025-08-19] MEDS ORDERED: hydrALAZINE HCL 20 MG/ML VL IV PRN (19:00)
[2025-08-20] VITALS (8 sets, daily range): BP systolic 130–148; BP diastolic 62–85; PULSE 55–71; RESP 16–20; TEMP 36.1; O2SAT 95–97
[2025-08-20] MEDS: METOPROLOL SUCCINATE XL 50 MG TAB PO SCH (10:04)
--- NOTE | 2025-08-20 11:22 | MEDREC ---
[facility] Intervention Section I [facility] Intervention: Review ralph of ABX 48h AIO (PLEASE CONSIDER D/C CEFTRIAXONE PER [place] GUIDELINE FOR THE MANAGEMENT OF ASYMPTOMATIC BACTERIURIA IN OLDER PATIENTS WITH BACTERIURIA AND WITHOUT LOCAL GENITOURINARY SYMPTOMS OR OTHER SYSTEMIC SIGNS OF INFECTION (FEVER, HEMODYNAMIC INSTABILITY), WE RECOMMEND CAREFUL OBSERVATION RATHER THAN ANTIMICROBIAL TREATMENT OF BACTERIURIA ) PA SEWELL PHARMACIST Aug 20, 2025 11:22
--- NOTE | 2025-08-20 12:01 | DVHSR ---
APPROVED REPORT EXAM: Two-dimensional and M-mode echocardiogram with Doppler and color Doppler. Blood Pressure: 136/85 mmHg INDICATION Chest Pain Surgery/Intervention Cardiac Ablation RISK FACTORS Height: 69, Weight: 183 DIMENSIONS LVDd (3.8-5.7cm) LA (2D) 5.1 (1.9-4.0cm) Aortic Root 3.7 (2.0-3.7cm) LVDs (2.5-4.0cm) LA (MM) (1.9-4.0cm) Aortic Cusp Exc 1.9 (1.5-2.0cm) EF (%) 61.0 (55-70%) Rt. Atrium 5.5 (1.9-4.0cm) Asc. Aorta cm Mitral Valve Mitral Mitral Stenosis E wave 0.66m/s MV Mean GR. mmHg A wave 0.73m/s MV Peak GR. mmHg E/A ratio 0.9 2D MVA cm2 DECEL Time 312ms PRESS 1/2 Time 80ms IVRT ms Dop MVA 2.74cm2 Aortic Valve Aortic Valve Aortic Stenosis V1 0.94m/s AO Mean GR. 4mmHg V2 1.35m/s AO Peak GR. 7mmHg LVOT Diameter 2.2 (1.8-2.4cm) Doppler OLE 2.65cm2 Other Information Technically limited study due to body habitus. Conclusion lvef 55% RV enlarged left atrium enlarged mild MAC aortic sclerosis limited study
--- NOTE | 2025-08-20 15:15 | DVHDS2 ---
Discharge Summary Date of Admission Aug 18, 2025 at 17:03 Date of Discharge: Aug 20, 2025 Labs/Diagnostic Data: Laboratory Results Test 08/19/25 05:41 08/18/25 17:27 08/18/25 13:20 White Blood Count 7.1 10^3/uL (4.4-10.8) Red Blood Count 4.13 10^6/uL (4.5-5.90) Hemoglobin 13.3 g/dL (13.5-17.5) Hematocrit 37.5 % (41.0-53.0) Mean Corpuscular Volume 90.8 fL (80.0-100.0) Mean Corpuscular Hemoglobin 32.3 pg (28.0-32.0) Mean Corpuscular Hemoglobin Concent 35.5 g/dL (32.0-36.0) Red Cell Distribution Width 13.6 % (11.8-14.3) Platelet Count 180 10^3/uL (140-450) Mean Platelet Volume 7.5 fL (6.9-10.8) Neutrophils (%) (Auto) 66.6 % (37.0-80.0) Lymphocytes (%) (Auto) 22.8 % (10.0-50.0) Monocytes (%) (Auto) 8.1 % (0.0-12.0) Eosinophils (%) (Auto) 2.2 % (0.0-7.0) Basophils (%) (Auto) 0.3 % (0.0-2.0) Neutrophils # (Auto) 4.7 10 ^3/uL (1.6-8.6) Lymphocytes # (Auto) 1.6 10 ^3/uL (0.4-5.4) Monocytes # (Auto) 0.6 10 ^3/uL (0-1.3) Eosinophils # (Auto) 0.2 10 ^3/uL (0-0.8) Basophils # (Auto) 0 10 ^3/uL (0-0.2) Nucleated Red Blood Cells 0.0 % Prothrombin Time 11.4 sec (9.3-11.8) Prothrombin Time INR 1.08 (0.9-1.15) Activated Partial Thromboplast Time 38.3 SEC (24.5-34.5) Sodium Level 137 mmol/L (136-145) Potassium Level 4.0 mmol/L (3.5-5.1) Chloride Level 102 mmol/L (98-107) Carbon Dioxide Level 26 mmol/L (20-31) Anion Gap 9 (5-15) Blood Urea Nitrogen 21 mg/dL (9-23) Creatinine 0.81 mg/dL (0.700-1.30) Glomerular Filtration Rate Calc 89 mL/min (>90) BUN/Creatinine Ratio 25.9 (10.0-20.0) Serum Glucose 88 mg/dL (74-106) Calcium Level 8.9 mg/dL (8.7-10.4) Urine Color Yellow (Yellow) Urine Clarity Turbid (Clear) Urine pH 6.0 (5.0-9.0) Urine Specific [place] 1.024 (1.001-1.035) Urine Protein Trace (Negative) Urine Ketones Trace (Negative) Urine Blood Negative /uL (Negative) Urine Nitrite 2+ (Negative) Urine Bilirubin Negative (Negative) Urine Urobilinogen Normal mg/dL (Negative) Urine Leukocyte Esterase 3+ /uL (Negative) Urine RBC 3 /hpf (0 - 3) Urine WBC Clumps Present /hpf (None Seen) Urine Microscopic WBC 243 /HPF (0-3) Urine Squamous Epithelial Cells Few /hpf (<5) Urine Bacteria Many /hpf (None Seen) Urine Mucus Few (None Seen) Urine Glucose Normal mg/dL (Normal) Influenza Type A Antigen Negative (Negative) Influenza Type B Antigen Negative (Negative) SARS-CoV-2 Antigen (Rapid) Negative (NEGATIVE) Total Bilirubin 0.4 mg/dL (0.2-1.0) Direct Bilirubin 0.1 mg/dL (<0.3) Aspartate Amino Transferase (AST) 14 U/L (13-40) Alanine Aminotransferase (ALT) 15 U/L (7-40) Alkaline Phosphatase 101 U/L (46-116) Troponin I High Sensitivity 3 ng/L (</=54) Total Protein 6.2 g/dL (5.7-8.2) Albumin 3.9 g/dL (3.2-4.8) Other Laboratory Tests 08/19/25 05:41 Brief Hx & Hospital Course: 80-year-old male with a known history of chronic AFib status post cardiac ablation, hypertension, asthma, BPH, major depression, chronic insomnia presented to the hospital with chest pain. Patient was eventually admitted. Patient's has a history of paroxysmal AFib Condition at Discharge: Stable Final Diagnosis/Problems List 80-year-old male with a known history of chronic AFib status post cardiac ablation, hypertension, asthma, BPH, major depression, chronic insomnia presented to the hospital with chest pain. 1. Chest pain rule out [place] 2. Paroxysmal AFib status post currently ablation in the past 3. Hypertension 4. Chronic asthma 5. BPH 6. Chronic insomnia 7. Major depression currently compensated Discharge Disposition: Home SNF Discharge Will this Physician continue t: No Discharge Instruct/Medications Diet: Cardiac 2g Na,low cholest Activity: No Restrictions, As Tolerated Follow Up/Referral: Follow up with the PCP in 1-2 weeks Follow up with the Cardiology in 1-2 weeks. Medications: Resume home medications. Continued Medications: Apixaban Base (Eliquis) 2.5 Mg Tab 5 MG PO BID, TAB Budesonide-Formoterol Fumarate (Budesonide/Formoterol Fum 160-4.5 Mcg/Act) 1 Aer Aer INH Gabapentin (Gabapentin) 300 Mg Cap 1 CAP PO BID Losartan Potassium (Losartan Potassium) 50 Mg Tab 50 MG PO DAILY, TAB Metoprolol Succinate (Toprol Xl) 50 Mg Tab 12.5 MG PO DAILY for 30 Days, #8 TAB Pantoprazole Sodium Sesquihydr (Pantoprazole Sodium) 40 Mg Tab 40 MG PO DAILY, TAB Tamsulosin Hcl (Tamsulosin Hcl) 0.4 Mg Cap 0.4 MG PO HS, CAP Trazodone HCl (Trazodone Hydrochloride) 50 Mg Tab 50 MG PO HS, TAB Vortioxetine Hydrobromide (Trintellix) 20 Mg Tab 1 TAB PO DAILY for ANXIETY Scheduled Apixaban Base (Eliquis), 5 MG PO BID, (Reported) Gabapentin (Gabapentin), 1 CAP PO BID, (Reported) Losartan Potassium (Losartan Potassium), 50 MG PO DAILY, (Reported) Metoprolol Succinate (Toprol Xl), 12.5 MG PO DAILY Pantoprazole Sodium Sesquihydr (Pantoprazole Sodium), 40 MG PO DAILY, (Reported) Tamsulosin Hcl (Tamsulosin Hcl), 0.4 MG PO HS, (Reported) Trazodone HCl (Trazodone Hydrochloride), 50 MG PO HS, (Reported) Vortioxetine Hydrobromide (Trintellix), 1 TAB PO DAILY, (Reported) Miscellaneous Medications Budesonide-Formoterol Fumarate (Budesonide/Formoterol Fum 160-4.5 Mcg/Act), INH, (Reported) Discharge Statement: "Patient was advised to return to the ER or call 911 if any headaches, dizziness, shortness of breath, chest pain, abdominal pain, bleeding, fevers, or worsening of medical condition. Patient was counseled about treatment plan, medications, possible side effects, patientverbalized understanding. All questions were answered to the best of my ability. This discharge took greater then 30 minutes in planning, reviewing documentation, counseling the patient, and discussing with other team members." ASSESSMENT ASSESSMENT Assessment 80-year-old male with a known history of chronic AFib status post cardiac ablation, hypertension, asthma, BPH, major depression, chronic insomnia presented to the hospital with chest pain. 1. Chest pain rule out [place] 2. Paroxysmal AFib status post currently ablation in the past 3. Hypertension 4. Chronic asthma 5. BPH 6. Chronic insomnia 7. Major depression currently compensated Date of Service: Aug 20, 2025 Billing Provider: MACO CHANEY MD Common Visit Codes: [id number] DISCH DAY >30min MACO CHANEY MD Aug 20, 2025 15:15
== END 2025-08-20 18:38 | disposition home or self-care (01) | DRG 311 ==
LOC: ER 12:09 → OVERFLOW 17:03 → TELE-CENTR 19:26 → TELE-WESTW 08-19 21:13
PROVIDERS: ATTEND Emergency Medicine
DX: I24.9 Acute ischemic heart disease, unspecified (principal); F32.9 Major depressive disorder, single episode, unspecified; J45.909 Unspecified asthma, uncomplicated; I11.9 Hypertensive heart disease without heart failure; I48.20 Chronic atrial fibrillation, unspecified; I25.110 Atherosclerotic heart disease of native coronary artery with unstable angina pectoris; F51.04 Psychophysiologic insomnia; Z20.822 Contact with and (suspected) exposure to COVID-19; K21.9 Gastro-esophageal reflux disease without esophagitis; I48.0 Paroxysmal atrial fibrillation; N40.0 Benign prostatic hyperplasia without lower urinary tract symptoms; Z82.49 Family history of ischemic heart disease and other diseases of the circulatory system; Z80.0 Family history of malignant neoplasm of digestive organs
CPT/HCPCS: 36415; 71046; 80048; 80076; 81001; 84484; 85025; 85610; 85730; 87086; 87426; 87804; 93005; 93306; G0378